=== PATIENT | female | born 1935 | race Caucasian/White ===

== ENCOUNTER 2017-11-24 12:52 | Emergency (ER) | payer MEDICARE, BC ==
[~2017-11-24] VITALS: Ht 172.7 cm; Wt 60.3 kg
[~2017-11-24 12:52] MED LIST: ASPIRIN EC81 M1 PO; ATENOLOL 50 MG50 M1 PO; ATORVASTATIN CA40 MG PO; AUGMENTIN 875875 MG PO; CALCIUM 1,0001 EACH PO; ENDUR-ACIN500 MG PO; FISH OIL 1,0001 EAC5 PO; GLUCOSAMINE HC500 MG PO; PLAVIX 75 MG TA75 M1 PO; SYNTHROID112 MCG PO; TAMIFLU PO; TENORMIN50 MG PO; TRAMADOL 50 MG50 MG PO; ULTRAM 50MG TAB50 MG PO; XANAX 0.25 MG0.25 MG PO; ZOFRAN ODT4 MG PO
[2017-11-24 13:23] LABS: URINE BILIRUBIN NEGATIVE (Negative); URINE BLOOD 2+ (Negative); URINE CLARITY CLEAR; URINE COLOR YELLOW; URINE GLUCOSE-RANDOM NEGATIVE (Negative); URINE KETONES TRACE (Negative); URINE LEUKOCYTES-REFLEX TRACE (Negative); URINE NITRITE-REFLEX NEGATIVE (Negative); URINE PROTEIN 2+ (Negative); URINE UROBILINOGEN 0.2 E.U./dl (0.2-1.0)
[2017-11-24 13:31] LABS: BACTERIA-REFLEX 1-9 Few /HPF (None Seen); CASTS None Seen /LPF (None Seen); CRYSTALS None Seen /LPF (None Seen); MUCUS None Seen strn/LPF (None Seen); SQUAMOUS 4-10 Moderate /LPF (0-3); URINE RBC 3-10 Few /HPF (0-2); URINE WBC-REFLEX 0-5 Rare /HPF (0-5)
[2017-11-24 13:44] LABS: ABSOLUTE EOSINOPHILS 0.1 thou/uL (0.0-0.7); ABSOLUTE LYMPHOCYTES 0.8 thou/uL (0.8-5.3); ABSOLUTE MONOCYTES 0.5 thou/uL (0.0-1.2); ABSOLUTE NEUTROPHILS 6.4 thou/uL (1.6-8.1); BASOPHILS 0.4 %; EOSINOPHILS 1.7 %; HEMATOCRIT 39.9 % (37.0-47.0); HEMOGLOBIN 13.3 gm/dL (12.0-15.0); LYMPHOCYTES 10.3 %; MCH 31.8 pg (26.0-34.0); MCHC 33.3 g/dL (28.0-37.0); MCV 95.4 fL (80.0-100.0); MONOCYTES 6.8 %; MPV 8.3 fl. (7.2-11.1); NUCLEATED RBCS 0 /100WBC; PLATELET COUNT* 154 thou/uL (150-400); POLYS 80.8 %; RBC 4.19 mil/uL (4.20-5.00); RDW-CV 13.4 % (10.5-14.5)
[2017-11-24 13:54] LABS: APTT 33.6 Seconds (25.0-31.3); PROTIME 10.1 Seconds (9.20-11.50)
[2017-11-24 13:55] LABS: ANION GAP 10 mmol/L (7-16); BUN 13 mg/dL (7-18); CALCIUM 9.4 mg/dL (8.5-10.1); CHLORIDE 97 mmol/L (98-107); CO2 27 mmol/L (21-32); CREATININE 0.9 mg/dL (0.6-1.3); GLUCOSE 109 mg/dL (70-99); POTASSIUM 3.9 mmol/L (3.5-5.1); SODIUM 134 mmol/L (136-145)
[2017-11-24 14:04] LABS: ALBUMIN 3.9 g/dL (3.4-5.0); ALKALINE PHOSPHATASE 102 U/L (46-116); NT-PRO BRAIN NAT PEPTIDE 2251 pg/mL (<300); SGOT 21 U/L (15-37); SGPT 29 U/L (30-65); TOTAL BILIRUBIN 0.4 mg/dL (<0.1-1.0); TOTAL PROTEIN 7.6 g/dL (6.4-8.2); TROPONIN-I LEVEL <0.06 ng/mL (<0.06)
[2017-11-24] MEDS ORDERED: ZPAK PO (14:53)
[2017-11-24] MEDS ORDERED: PREDNISONE 20 M20 M1 PO (14:53)
[2017-11-24 15:07] VITALS: BP 155/62
--- NOTE | 2017-11-24 16:45 | EKG ---
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 : 1935 Requested By: Braydon Nogueira Order Number: [id number] MD: Blas Gongora Measurements Intervals [place] Rate: 66 P: 65 NC: 211 QRS: -76 QRSD: 143 T: 19 QT: 430 QTc: 451 Interpretive Statements Sinus rhythm Probable left atrial enlargement Right bundle-branch block with left anterior fascicular block Compared to ECG 02/24/2017 15:42:15 No significant changes noted Electronically Signed On 11-24-2017 16:45:48 QUALITY ASSURANCE MONITOR FINAL by Blas Gongora [email or web address] <ELECTRONICALLY SIGNED> By: Blas Gongora MD, [facility] 11/24/17 1645 38 38 Blas Gongora MD, FAC /EPI
== END 2017-11-24 15:08 | disposition home or self-care (01) ==
LOC: M.ERS 12:52
PROVIDERS: Family Medicine
DX: R05 Cough (principal); R53.1 Weakness; J02.9 Acute pharyngitis, unspecified; Z95.5 Presence of coronary angioplasty implant and graft; Z98.890 Other specified postprocedural states; Z88.5 Allergy status to narcotic agent; Z88.6 Allergy status to analgesic agent

== ENCOUNTER 2019-04-14 11:14 | Inpatient (IN) | payer MEDICARE, BC ==
[~2019-04-14] VITALS: Ht 172.7 cm; Wt 59.2 kg
--- NOTE | ~2019-04-14 | CON ---
[address] [address] CONSULTATION Name: MARISOL GERARD Room: [address] IN M.R.#: [id number] Admission: 04/14/19 Attend Phys: Ryan Millan, Discharge: Date of : 31 Report #: [id number] THIS REPORT FOR: //name// CC: Lamin Millan HISTORY OF PRESENT ILLNESS: This is a pleasant 83-year-old female who was admitted to [facility] 2 weeks back for vertebral fracture status post vertebroplasty, who has transferred care here since she was unhappy because of poor pain control. GI service has been consulted for evaluation of elevated lipase. The patient denies any significant abdominal pain, nausea, vomiting, diarrhea, hematemesis or hematochezia. She denies prior episodes of pancreatitis. The patient does report generalized weakness, malaise and lethargy. PAST MEDICAL HISTORY: She has a history of coronary artery disease, thrombocytopenia, vertebroplasty for vertebral fracture, hyperlipidemia, and dementia. PAST SURGICAL HISTORY: The patient has a history of vertebroplasty as mentioned above. SOCIAL HISTORY: There is no history of alcohol, smoking or recreational drug use. FAMILY HISTORY: No family history of colorectal or pancreatic malignancy. REVIEW OF SYSTEMS: A comprehensive 10-point review of systems is negative except for what was mentioned in the HPI. PHYSICAL EXAMINATION: VITAL SIGNS: Temperature 36.4, pulse rate 60, respirations 18, blood pressure 158/83. GENERAL: The patient is alert, awake. HEENT: Pupils are equal, round, reactive to light and accommodation. Mucous membranes are moist. There is no congestion. LUNGS: Clear to auscultation bilaterally. CARDIOVASCULAR: Rate and rhythm regular. S1, S2 present. ABDOMEN: Soft. There is no distention, guarding or rigidity. EXTREMITIES: Warm and well perfused. There is no edema. SKIN: Warm and dry. LABORATORY DATA: WBC 1.8, hemoglobin 11.8, hematocrit 35.4, platelet count 59. Sodium 138, potassium 4.0, chloride 96, bicarbonate 23, BUN 14, creatinine 0.9, total bilirubin 0.3, AST 47, ALT 40, alkaline phosphatase 75. Lipase on presentation was 1153. [place] [address] CONSULTATION Name: MARISOL GERARD Room: [address] IN [facility]#: [id number] Admission: 04/14/19 Attend Phys: Ryan Millan, Discharge: Date of : 33 Report #: [id number] IMAGING: CT abdomen and pelvis does not demonstrate any evidence of pancreatitis, evidence of previous cholecystectomy and appendectomy, abdominal aortic graft. ASSESSMENT AND PLAN: Pleasant 83-year-old female with history as outlined above, who is presenting for pain management following vertebroplasty. The GI service has been consulted for evaluation of pancreatitis. The patient does not have any abdominal pain, only her lipase is elevated. There is no CT evidence of pancreatitis. Therefore, I suspect she may have some nonspecific enteritis causing elevation of lipase, which needs no further intervention at this time. The patient never had a colonoscopy, but currently she is too old to proceed with screening colonoscopy. Her platelet count is low, but there is no evidence of cirrhosis and she additionally has low WBC count and this may be more related to myelodysplastic syndrome. No endoscopic intervention planned at this time. Thank you for this consultation and please do not hesitate to call us if you have any questions. By: [id number] Momin MD /nt
[~2019-04-14 11:14] MED LIST changes: +ATENOLOL 25 MG25 M1 PO; +PREDNISONE 20 M20 M1 PO; -SYNTHROID112 MCG PO; +SYNTHROID88 MCG PO; -TENORMIN50 MG PO; +ZPAK PO
[2019-04-14 11:23] VITALS: BP 143/58
[2019-04-14 11:54] LABS: HEMATOCRIT 37.5 % (37.0-47.0); HEMOGLOBIN 12.4 gm/dL (12.0-15.0); MCH 31.4 pg (26.0-34.0); MCHC 33.1 g/dL (28.0-37.0); MCV 94.9 fL (80.0-100.0); NUCLEATED RBCS 0 /100WBC; RBC 3.95 mil/uL (4.20-5.00); RDW-CV 13.5 % (10.5-14.5)
[2019-04-14 12:03] LABS: WBC 1.6 thou/uL (4.0-11.0)
[2019-04-14 12:04] LABS: ANION GAP 9 mmol/L (7-16); BUN 21 mg/dL (7-18); CALCIUM 8.3 mg/dL (8.5-10.1); CHLORIDE 99 mmol/L (98-107); CO2 23 mmol/L (21-32); CREATININE 1.2 mg/dL (0.6-1.3); GLUCOSE 117 mg/dL (70-99); POTASSIUM 4.5 mmol/L (3.5-5.1); SODIUM 131 mmol/L (136-145)
[2019-04-14 12:05] LABS: APTT 35.7 Seconds (25.0-31.3)
[2019-04-14 12:13] LABS: ALBUMIN 3.7 g/dL (3.4-5.0); ALKALINE PHOSPHATASE 88 U/L (46-116); LIPASE 1153 U/L (73-393); SGOT 53 U/L (15-37); SGPT 46 U/L (30-65); TOTAL BILIRUBIN 0.4 mg/dL (<0.1-1.0); TOTAL PROTEIN 6.5 g/dL (6.4-8.2); TROPONIN-I LEVEL <0.06 ng/mL (<0.06)
[2019-04-14 12:42] LABS: ABSOLUTE LYMPHOCYTES 0.8 thou/uL (0.8-5.3); ABSOLUTE MONOCYTES 0.2 thou/uL (0.0-1.2); ABSOLUTE NEUTROPHILS 0.6 thou/uL (1.6-8.1)
[2019-04-14 12:45] LABS: PLATELET ESTIMATE DECREASED
[2019-04-14 12:46] LABS: PLATELET COUNT* 70 thou/uL (150-400)
[2019-04-14 14:22] LABS: URINE BILIRUBIN NEGATIVE (Negative); URINE BLOOD NEGATIVE (Negative); URINE CLARITY CLEAR; URINE COLOR YELLOW; URINE GLUCOSE-RANDOM NEGATIVE (Negative); URINE KETONES NEGATIVE (Negative); URINE LEUKOCYTES-REFLEX NEGATIVE (Negative); URINE NITRITE-REFLEX NEGATIVE (Negative); URINE PROTEIN NEGATIVE (Negative); URINE SPECIFIC GRAVITY <= 1.005 (1.005-1.030); URINE UROBILINOGEN 0.2 E.U./dl (0.2-1.0)
--- NOTE | 2019-04-14 15:43 | EKG ---
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 : 1935 Requested By: Татьяна Mederos Order Number: [id number] MD: Kishan Hernandez Measurements Intervals [place] Rate: 57 P: -27 GA: 217 QRS: -73 QRSD: 152 T: -11 QT: 467 QTc: 455 Interpretive Statements Sinus rhythm Borderline prolonged GA interval artifact noted RBBB and LAFB Compared to ECG 11/24/2017 13:39:29 No significant changes Electronically Signed On 04-14-2019 15:43:15 CDT by Kishan Hernandez [email or web address] <ELECTRONICALLY SIGNED> By: Kishan Hernandez MD, [facility] 04/14/19 1543 1204 1204 Kishan Hernandez MD, [facility] /EPI
[2019-04-14 16:14] VITALS: BP 142/64
[2019-04-14 16:20] VITALS: BP 161/69
[2019-04-14 19:30] VITALS: BP 130/61
[2019-04-14] MEDS ORDERED: LOSARTAN POTASS50 MG PO (20:49)
[2019-04-14] MEDS ORDERED: ASPIR 8181 M1 PO (20:52)
[2019-04-14] MEDS ORDERED: ARICEPT 5 MG TAB5 MG PO (20:53)
[2019-04-15 04:34] LABS: HEMATOCRIT 35.4 % (37.0-47.0); HEMOGLOBIN 11.8 gm/dL (12.0-15.0); MCH 31.5 pg (26.0-34.0); MCHC 33.3 g/dL (28.0-37.0); MCV 94.6 fL (80.0-100.0); MPV 9.5 fl. (7.2-11.1); RBC 3.74 mil/uL (4.20-5.00); RDW-CV 13.6 % (10.5-14.5)
[2019-04-15 05:05] LABS: CALCIUM 8.3 mg/dL (8.5-10.1); CREATININE 0.9 mg/dL (0.6-1.3); MAGNESIUM 1.8 mg/dL (1.8-2.4); TOTAL BILIRUBIN 0.3 mg/dL (<0.1-1.0); TOTAL PROTEIN 5.8 g/dL (6.4-8.2)
[2019-04-15 06:01] LABS: WBC 1.8 thou/uL (4.0-11.0)
[2019-04-15 10:45] VITALS: BP 171/70
[2019-04-15 16:23] VITALS: BP 138/59
[2019-04-15 21:50] VITALS: BP 137/81
[2019-04-16 04:27] LABS: HEMATOCRIT 35.2 % (37.0-47.0); HEMOGLOBIN 11.7 gm/dL (12.0-15.0); MCH 31.2 pg (26.0-34.0); MCHC 33.1 g/dL (28.0-37.0); MCV 94.2 fL (80.0-100.0); MPV 9.2 fl. (7.2-11.1); RBC 3.74 mil/uL (4.20-5.00); RDW-CV 13.9 % (10.5-14.5)
[2019-04-16 05:00] LABS: CALCIUM 7.9 mg/dL (8.5-10.1); CREATININE 0.8 mg/dL (0.6-1.3); MAGNESIUM 1.6 mg/dL (1.8-2.4); POTASSIUM 3.9 mmol/L (3.5-5.1); TOTAL BILIRUBIN 0.4 mg/dL (<0.1-1.0); TOTAL PROTEIN 5.5 g/dL (6.4-8.2)
[2019-04-16 05:16] LABS: WBC 1.7 thou/uL (4.0-11.0)
[2019-04-16 08:45] VITALS: BP 158/83
[2019-04-16 16:00] VITALS: BP 171/79
[2019-04-16 20:40] VITALS: BP 165/68
[2019-04-17 04:27] LABS: HEMATOCRIT 33.3 % (37.0-47.0); HEMOGLOBIN 11.2 gm/dL (12.0-15.0); MCH 31.6 pg (26.0-34.0); MCHC 33.6 g/dL (28.0-37.0); MCV 93.9 fL (80.0-100.0); MPV 9.3 fl. (7.2-11.1); RBC 3.54 mil/uL (4.20-5.00); RDW-CV 13.6 % (10.5-14.5); WBC 2.2 thou/uL (4.0-11.0)
[2019-04-17 04:53] LABS: ALBUMIN 2.9 g/dL (3.4-5.0); CALCIUM 8.1 mg/dL (8.5-10.1); CREATININE 0.7 mg/dL (0.6-1.3); MAGNESIUM 1.6 mg/dL (1.8-2.4); TOTAL BILIRUBIN 0.5 mg/dL (<0.1-1.0); TOTAL PROTEIN 5.5 g/dL (6.4-8.2)
[2019-04-17 09:51] VITALS: BP 152/82
[2019-04-17 16:00] VITALS: BP 179/83
[2019-04-17 20:00] VITALS: BP 185/78
[2019-04-18 04:37] LABS: HEMATOCRIT 33.9 % (37.0-47.0); HEMOGLOBIN 11.3 gm/dL (12.0-15.0); MCH 31.3 pg (26.0-34.0); MCHC 33.4 g/dL (28.0-37.0); MCV 93.7 fL (80.0-100.0); MPV 9.8 fl. (7.2-11.1); RBC 3.62 mil/uL (4.20-5.00); RDW-CV 13.7 % (10.5-14.5); WBC 2.9 thou/uL (4.0-11.0)
[2019-04-18 04:54] LABS: ALBUMIN 2.9 g/dL (3.4-5.0); CALCIUM 8.3 mg/dL (8.5-10.1); CREATININE 0.8 mg/dL (0.6-1.3); MAGNESIUM 1.7 mg/dL (1.8-2.4); PHOSPHORUS* 2.8 mg/dL (2.5-4.9); POTASSIUM 3.6 mmol/L (3.5-5.1)
[2019-04-18 08:15] VITALS: BP 174/79
[2019-04-18 11:55] VITALS: BP 156/58
[2019-04-18] MEDS ORDERED: LIDODERM1 EACH TOP (13:49)
[2019-04-18] MEDS ORDERED: LORTAB PO (13:50)
[2019-04-18 13:55] VITALS: BP 156/58
[2019-04-18 13:58] VITALS: BP 176/54
[2019-04-18 14:40] VITALS: BP 180/83
[2019-04-18 15:08] VITALS: BP 156/74
== END 2019-04-18 15:27 | disposition home or self-care (01) | DRG 812 ==
LOC: M.ERS 11:14 → M.TBA-ER 15:09 → M.ORTHSURG 15:09
PROVIDERS: Internal Medicine Hematology & Oncology; Nurse Practitioner Family; ADMIT Family Medicine
DX: D46.9 Myelodysplastic syndrome, unspecified (principal); E44.1 Mild protein-calorie malnutrition; Z68.1 Body mass index [BMI] 19.9 or less, adult; F03.90 Unspecified dementia, unspecified severity, without behavioral disturbance, psychotic disturbance, mood disturbance, and anxiety; M54.9 Dorsalgia, unspecified; M54.6 Pain in thoracic spine; G89.29 Other chronic pain; I25.10 Atherosclerotic heart disease of native coronary artery without angina pectoris; E78.5 Hyperlipidemia, unspecified; K52.9 Noninfective gastroenteritis and colitis, unspecified; K57.90 Diverticulosis of intestine, part unspecified, without perforation or abscess without bleeding; Z90.49 Acquired absence of other specified parts of digestive tract; Z88.6 Allergy status to analgesic agent; Z88.8 Allergy status to other drugs, medicaments and biological substances; I25.2 Old myocardial infarction; Z88.5 Allergy status to narcotic agent; Z82.49 Family history of ischemic heart disease and other diseases of the circulatory system; Z95.5 Presence of coronary angioplasty implant and graft

== ENCOUNTER 2019-10-23 16:48 | Emergency (ER) | payer MEDICARE, BC ==
[~2019-10-23] VITALS: Ht 172.7 cm; Wt 56.7 kg
[~2019-10-23 16:48] MED LIST changes: +ARICEPT 5 MG TAB5 MG PO; +ASPIR 8181 M1 PO; +LIDODERM1 EACH TOP; +LORTAB PO; +LOSARTAN POTASS50 MG PO
[2019-10-23 17:09] LABS: URINE BILIRUBIN NEGATIVE (Negative); URINE BLOOD NEGATIVE (Negative); URINE CLARITY CLEAR; URINE COLOR YELLOW; URINE GLUCOSE-RANDOM NEGATIVE (Negative); URINE KETONES NEGATIVE (Negative); URINE LEUKOCYTES-REFLEX NEGATIVE (Negative); URINE NITRITE-REFLEX NEGATIVE (Negative); URINE PROTEIN NEGATIVE (Negative); URINE UROBILINOGEN 0.2 E.U./dl (0.2-1.0)
[2019-10-23 17:35] LABS: ABSOLUTE BASOPHILS 0.1 thou/uL (0.0-0.2); ABSOLUTE EOSINOPHILS 0.4 thou/uL (0.0-0.7); ABSOLUTE LYMPHOCYTES 1.8 thou/uL (0.8-5.3); ABSOLUTE MONOCYTES 0.4 thou/uL (0.0-1.2); ABSOLUTE NEUTROPHILS 4.4 thou/uL (1.6-8.1); BASOPHILS 0.8 %; EOSINOPHILS 6.1 %; HEMATOCRIT 37.3 % (37.0-47.0); HEMOGLOBIN 12.8 gm/dL (12.0-15.0); LYMPHOCYTES 25.6 %; MCH 33.5 pg (26.0-34.0); MCHC 34.2 g/dL (28.0-37.0); MCV 97.8 fL (80.0-100.0); MPV 9.2 fl. (7.2-11.1); NUCLEATED RBCS 0 /100WBC; PLATELET COUNT* 152 thou/uL (150-400); POLYS 61.5 %; RBC 3.81 mil/uL (4.20-5.00); RDW-CV 13.6 % (10.5-14.5); WBC 7.2 thou/uL (4.0-11.0)
[2019-10-23 17:44] LABS: CALCIUM 9.1 mg/dL (8.5-10.1); CREATININE 1.1 mg/dL (0.6-1.3); POTASSIUM 4.7 mmol/L (3.5-5.1)
[2019-10-23 17:48] LABS: ALBUMIN 3.5 g/dL (3.4-5.0); TOTAL BILIRUBIN 0.3 mg/dL (<0.1-1.0); TOTAL PROTEIN 6.8 g/dL (6.4-8.2)
[2019-10-23] MEDS ORDERED: FLEXERIL PO (18:59)
[2019-10-23 19:13] VITALS: BP 126/56
== END 2019-10-23 19:15 | disposition home or self-care (01) ==
LOC: M.ERS 16:48
PROVIDERS: Family Medicine; Nurse Practitioner Family
DX: M54.5 Low back pain (principal); G89.29 Other chronic pain; F03.90 Unspecified dementia, unspecified severity, without behavioral disturbance, psychotic disturbance, mood disturbance, and anxiety; Z90.49 Acquired absence of other specified parts of digestive tract; Z95.2 Presence of prosthetic heart valve; Z88.5 Allergy status to narcotic agent; Z88.6 Allergy status to analgesic agent; Z88.1 Allergy status to other antibiotic agents

== ENCOUNTER 2020-06-18 08:43 | Inpatient (IN) | payer MEDICARE, BC ==
[~2020-06-18] VITALS: Ht 172.7 cm; Wt 56.2 kg
[~2020-06-18 08:43] MED LIST changes: +FLEXERIL PO
[2020-06-18 09:02] VITALS: BP 146/71
[2020-06-18 10:16] LABS: ABSOLUTE EOSINOPHILS 0.3 thou/uL (0.0-0.7); ABSOLUTE LYMPHOCYTES 1.4 thou/uL (0.8-5.3); ABSOLUTE MONOCYTES 0.5 thou/uL (0.0-1.2); ABSOLUTE NEUTROPHILS 4.8 thou/uL (1.6-8.1); BASOPHILS 0.7 %; HEMATOCRIT 34.3 % (37.0-47.0); HEMOGLOBIN 11.7 gm/dL (12.0-15.0); LYMPHOCYTES 19.5 %; MCHC 34.3 g/dL (28.0-37.0); MCV 99.2 fL (80.0-100.0); MONOCYTES 6.8 %; MPV 9.3 fl. (7.2-11.1); NUCLEATED RBCS 0 /100WBC; PLATELET COUNT* 130 thou/uL (150-400); RBC 3.46 mil/uL (4.20-5.00); RDW-CV 13.1 % (10.5-14.5)
[2020-06-18 10:25] LABS: CALCIUM 8.6 mg/dL (8.5-10.1); CREATININE 1.1 mg/dL (0.6-1.3); POTASSIUM 4.2 mmol/L (3.5-5.1)
[2020-06-18 10:35] LABS: ALBUMIN 3.4 g/dL (3.4-5.0); TOTAL BILIRUBIN 0.5 mg/dL (<0.1-1.0); TOTAL PROTEIN 6.4 g/dL (6.4-8.2)
[2020-06-18 10:36] LABS: APTT 26.4 Seconds (25.0-31.3); PROTIME 10.7 Seconds (9.20-11.50)
--- NOTE | 2020-06-18 12:37 | NUR ---
20 g LT ac IV ACCESS did not function upon arrival. CALLED INFUSION LAB FOR REPLACEMENT
--- NOTE | 2020-06-18 13:18 | NUR ---
RENETTA SHEPARD FROM INFUSION ARRIVED IN CT TO PERFORM A MIDLINE IN LEFT UPPER ARM. SUCCESSFUL ATTEMPT, TRANSPARENT TAPE APPLIED. RENETTA SHEPARD ATTEMPTED PERIPHERAL IV X [address] UNS[address] PRIOR TO MIDLINE. DR MENDOZA NOTIFIED. PT TOLERATED PROCEDURE FAIR
[2020-06-18 15:02] LABS: URINE BILIRUBIN NEGATIVE (Negative); URINE BLOOD NEGATIVE (Negative); URINE CLARITY CLEAR; URINE COLOR YELLOW; URINE GLUCOSE-RANDOM NEGATIVE (Negative); URINE KETONES NEGATIVE (Negative); URINE LEUKOCYTES-REFLEX NEGATIVE (Negative); URINE NITRITE-REFLEX NEGATIVE (Negative); URINE PROTEIN NEGATIVE (Negative); URINE UROBILINOGEN 0.2 E.U./dl (0.2-1.0)
--- NOTE | 2020-06-18 15:22 | EKG ---
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 06/18/20 1522 0856 0856 Kishan Hernandez MD, [facility] /EPI
--- NOTE | 2020-06-18 16:37 | CON ---
[address] [address] CONSULTATION Name: MARISOL GERARD Room: [address] M.R.#: [id number] Admission: 06/18/20 Attend Phys: David Adam MD Discharge: Date of : 31 Report #: [id number] THIS REPORT FOR: //name// cc: Lamin Lou MD, Bruce D. MD ~ THIS REPORT FOR: //name// CC: Lamin Griffith DATE OF SERVICE: 06/18/2020 CARDIOLOGY CONSULTATION HISTORY OF PRESENT ILLNESS: The patient is an 85-year-old white female who I was asked to see in the Emergency Room today after she was noted to be bradycardic. The history is obtained from the old records as well as the . The patient has had several hospitalizations here at [facility] in the past. She was admitted here in 2013 with the flu. She was admitted here in 2017 after a dog bite on her hands and a hematoma. She was admitted here a year ago in 04/2019 with chronic back pain. She had a spinal injection performed. She is noted to be thrombocytopenic. She has previous history of placement of an abdominal aortic aneurysm stent graft. The patient has a history of dementia and memory loss. She is able to feed herself and walk. She was doing well until this morning, she noticed a pain in her left armpit. Her brought her to the Emergency Room. She has chronic shortness of breath. She has felt lightheaded, but no syncope. She denied any trauma, fever or cough. PAST MEDICAL HISTORY: She had hysterectomy, cholecystectomy, placement of an abdominal aortic aneurysm stent graft. MEDICATIONS: On admission include Aricept, Synthroid, atenolol, Lipitor, Plavix, losartan, aspirin. ALLERGIES: SHE HAS AN ALLERGY TO MORPHINE. FAMILY HISTORY: Negative for heart disease. SOCIAL HISTORY: She is . Quit smoking years ago. No alcohol abuse. REVIEW OF SYSTEMS: No history of stroke, asthma, liver disease, kidney disease, cancer, psychiatric illness. PHYSICAL EXAMINATION: GENERAL: Revealed an elderly female lying in bed. [place] [address] CONSULTATION Name: MARISOL GERARD Room: [address]#: [id number] Admission: 06/18/20 Attend Phys: David Adam MD Discharge: Date of : 33 Report #: [id number] VITAL SIGNS: She had a blood pressure of 140/60, pulse is 46. She was afebrile. HEENT: She is anicteric. Conjunctivae are pink. Mucous membranes are dry. CHEST: Clear to auscultation. CARDIOVASCULAR: Regular bradycardia. ABDOMEN: Soft. EXTREMITIES: Had no significant edema. SKIN: Cool and dry. NEUROLOGIC: She is able to move all extremities. IMAGING: Her ECG on admission showed sinus bradycardia, left anterior fascicular block and a right bundle branch block. She had workup in the Emergency Room today that included a portable chest x-ray that showed normal heart size. There was a soft tissue density along the left chest wall. LABORATORY DATA: Sodium 137, creatinine 1.1. Liver function studies were normal. Troponin 0.06. BNP 1141. White blood cell count 7.0, hematocrit 34.3. IMPRESSION AND RECOMMENDATIONS: 1. Sinus bradycardia, suspect secondary to beta john paul. I would discontinue her beta john paul at this time. I would check thyroid function studies. 2. Left chest wall pain. Suspect noncardiac. Noted to have mass on chest x-ray. Recommend CT scan of the chest. 3. Dementia. 4. Previous placement of an abdominal aortic aneurysm stent graft. 5. Hypertension. The patient has been on atenolol and losartan. I would discontinue atenolol at this time because of bradycardia. 6. Hyperlipidemia. The patient is on a statin drug. <ELECTRONICALLY SIGNED> By: Kishan Hernandez MD, [facility] 06/18/20 1637 1330 [id number] Hernandez MD, FAC /nt
--- NOTE | 2020-06-18 18:44 | NUR ---
LORNE WRAPS APPLIED TO IV SITES TO PREVENT ACCIDENTAL PULLING FROM PT
[2020-06-18 19:55] VITALS: BP 124/57
[2020-06-18 20:15] VITALS: BP 136/82
[2020-06-19] VITALS: BP 124/79; BP 160/60
[2020-06-19 01:03] LABS: HEMATOCRIT 33.2 % (37.0-47.0); HEMOGLOBIN 11.4 gm/dL (12.0-15.0); MCH 33.9 pg (26.0-34.0); MCHC 34.3 g/dL (28.0-37.0); MCV 99.1 fL (80.0-100.0); RBC 3.35 mil/uL (4.20-5.00); RDW-CV 13.2 % (10.5-14.5); WBC 5.3 thou/uL (4.0-11.0)
[2020-06-19 01:14] LABS: CALCIUM 8.1 mg/dL (8.5-10.1); CREATININE 1.2 mg/dL (0.6-1.3); MAGNESIUM 1.7 mg/dL (1.8-2.4); POTASSIUM 3.8 mmol/L (3.5-5.1)
[2020-06-19] MEDS ORDERED: NAMENDA 10 MG T10 MG PO (01:45)
[2020-06-19] MEDS ORDERED: FOLIC ACID1 MG PO (01:46)
[2020-06-19] MEDS ORDERED: CALCIUM500 MG PO (01:47)
[2020-06-19] MEDS ORDERED: IRON18 M1 PO (01:48)
[2020-06-19] MEDS ORDERED: VITAMIN D325 MC3 PO (01:50)
[2020-06-19 04:00] VITALS: BP 115/56
--- NOTE | 2020-06-19 04:37 | NUR ---
RECIEVED REPORT FROM ORLANDO SHEPARD. PT TRANSFERRED TO 207. PT A&OX4. FORGETFUL. VSS. 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 ADMISSION HISTORY & PHYSICAL ASSESSMENT COMPLETED AND CHARTED. REC MED DONE. ORIENTED TO ROOM & CALL LIGHT. FAMILY AT BEDSIDE. PT ON RA. PT TRACING SB/1ST DEG/BBB ON TELE. PT UPSTANDBY TO RESTROOM. PT COMPLAINED OF HEADACHE-MED GIVEN PER JAN. INSTRUCTED ON NPO POST MIDNIGHT FOR CARDIO CONSULT. COMMUNICATES UNDERSTANDING BUT NEEDS REMINDER. PT ABLE TO SLEEP WELL ON BED. FALL PRECAUTIONS IN PLACE. CALL LIGHT WITHIN REACH.
--- NOTE | 2020-06-19 12:42 | NUR ---
CM spoke with in room at bedside, per Pt is [place]. Pt is independent with ADLs. Pt and share IADLs. Supportive son and DIL and grandkids. No DME. No hx of HH or SNF. Goal is home at dc. Anticipate dc tomorrow, no needs per .
[2020-06-19 12:43] VITALS: BP 120/57
--- NOTE | 2020-06-19 13:11 | 2DMMODE ---
[place] [address] 2 D/M-MODE ECHOCARDIOGRAM Name: MARISOL GERARD Room: [address] IN .R.#: [id number] Admission: 06/18/20 Attend Phys: David Adam, Discharge: Date of : 31 Date of Service: 06/19/20 1311 Report #: [id number] THIS REPORT FOR: cc: Lamin Lou MD, Bruce D. MD Liston, Michael J. MD [facility] ~ APPROVED REPORT Study performed: 06/19/2020 10:16:39 EXAM: Comprehensive 2D, Doppler, and color-flow Echocardiogram Patient Location: In-Patient Room #: [facility] Status: routine BSA: 1.63 HR: 40 bpm BP: 115/56 mmHg Rhythm: NSR Other Information Study Quality: Good Indications Abnormal ECG 2D Dimensions IVSd: 9.29 (7-11mm) LVOT Diam: 18.91 (18-24mm) LVDd: 51.48 mm PWd: 9.15 (7-11mm) Ascending Ao: 25.13 (22-36mm) LVDs: 25.90 (25-40mm) Aortic Root: 29.64 mm Volumes Left Atrial Volume (Systole) LA ESV Index: 38.50 mL/m2 Aortic Valve AoV Peak Evan.: 2.05 m/s AO Peak Gr.: 16.86 mmHg LVOT Max P.89 mmHg AO Mean Gr.: 10.21 mmHg LVOT Mean P.13 mmHg LVOT Max V: 1.49 m/s AO V2 VTI: 54.19 cm LVOT Mean V: 0.96 m/s TIERRA (VTI): 1.63 cm2 LVOT V1 VTI: 31.47 [place] [address] 2 D/M-MODE ECHOCARDIOGRAM [facility]: [facility] Room: [address] IN .R.#: [id number] Admission: 06/18/20 Attend Phys: David Adam, Discharge: Date of : 33 Date of Service: 06/19/20 1311 Report #: [id number] Mitral Valve MV Decel. Time: 336.92 ms MV PHT: 97.71 ms MVA (PHT): 2.25 cm2 TDI Medial E' Evan.: 0.08 m/s Lateral E' Evan.: 0.11 m/s Pulmonary Valve PV Peak Evan.: 1.17 m/s PV Peak Gr.: 5.51 mmHg Tricuspid Valve RAP Estimate: 5.00 mmHg TR Peak Gr.: 23.50 mmHg RVSP: 28.00 mmHg PA Pressure: 28.00 mmHg Left Ventricle The left ventricle is normal size. There is normal LV segmental wall motion. There is normal left ventricular wall thickness. Left ventricular systolic function is normal. LVEF is >70%. Grade I - abnormal relaxation pattern. Right Ventricle The right ventricle is normal size. The right ventricular systolic function is normal. Atria Left atrium is mildly dilated. Right atrium is mildly dilated. Aortic Valve Mild aortic valve sclerosis. No aortic regurgitation is present. Mild aortic stenosis. Mitral Valve There is mitral annular calcification. Trace mitral regurgitation. No evidence of mitral valve stenosis. Tricuspid Valve The tricuspid valve is normal in structure. Mild tricuspid regurgitation. No pulmonary hypertension. Pulmonic Valve The pulmonary valve is normal in structure. There is no pulmonic [place] [address] 2 D/M-MODE ECHOCARDIOGRAM Name: MARISOL GERARD Room: [address] IN [facility].#: [id number] Admission: 06/18/20 Attend Phys: David Adam, Discharge: Date of : 31 Date of Service: 06/19/20 1311 Report #: [id number] Great Vessels The aortic root is normal in size. IVC is normal in size and collapses >50% with inspiration. Pericardium There is no pericardial effusion. <Conclusion> The left ventricle is normal size. There is normal left ventricular wall thickness. Left ventricular systolic function is normal. LVEF is >70%. Grade I - abnormal relaxation pattern. Left atrium is mildly dilated. Right atrium is mildly dilated. Mild aortic valve sclerosis. Mild aortic stenosis. Trace mitral regurgitation. Mild tricuspid regurgitation. No pulmonary hypertension. IVC is normal in size and collapses >50% with inspiration. <ELECTRONICALLY SIGNED> By: Blas Gongora MD, [facility]ACC 06/19/20 131 10 131 Blas Gongora MD, FACC /INF
--- NOTE | 2020-06-19 13:18 | EKG ---
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: : 1935 Requested By: Kishan Hernandez Order Number: [id number] Reading MD: Blas Gongora Measurements Intervals [place] Rate: 51 P: 69 GA: 251 QRS: -82 QRSD: 148 T: 11 QT: 508 QTc: 468 Interpretive Statements Sinus rhythm Prolonged [place] interval RBBB and LAFB Probable left ventricular hypertrophy Compared to ECG 06/18/2020 08:56:01 Sinus bradycardia no longer present Electronically Signed On 06-19-2020 13:18:37 CDT by Blas Gongora [email or web address] <ELECTRONICALLY SIGNED> By: Blas Gongora MD, FAC 06/19/20 1318 Blas Gongora MD, [facility] /EPI
--- NOTE | 2020-06-19 13:55 | NUR ---
ASSUMED CARE OF PATIENT THIS AM AT 0730. PATIENT WAS ALERT AND ORIENTED TO PERSON. SHE INITIALLY DENIED PAIN THIS AM BUT C/O A SEVERE BOSS SHORTLY AFTER AM ASSESSMENT WAS COMPLETED. PATIENT MEDICATED FOR C/O PAIN THIS AM. SHE STATED PAIN MEDICATION WAS NOT EFFECTIVE. PATIENT GIVEN ALTERNATIVE PAIN MEDICATION. SHE SAID THAT IS WAS NOT EFFECTIVE ITHER. PATIENT GIVEN ADDITIONAL MEDICATION. SEE JAN. PATIENT WAS SLEEPING WITHN 30 MINUTES OF MEDICATION. SHE HAS BEEN UP TO THE BATHROOM WITH STANDBY ASSIST. TELE SHOWS SINUS SUKHWINDER ARRYTHMIA WITH A 1DAVB AND BBB. HEART RATE WAS LOW 28. CARDIOLOGY IN TO SEE PATIENT THIS AM. NNO AT THIS TIME. WILL CONTINUE TO MONITOR HEART RYHTHM AND COMFORT.
[2020-06-19 16:54] VITALS: BP 160/81
[2020-06-19 20:30] VITALS: BP 156/72
[2020-06-20] VITALS: BP 127/70
[2020-06-20 04:00] VITALS: BP 130/66
--- NOTE | 2020-06-20 04:33 | NUR ---
PT HAS HAD GOOD NIGHT THUS FAR. SON AT BEDSIDE FOR SUPPORT AND COMFORT. PT AMBULATED IN HALLS BEFORE BED AND STATES SHE HAS HAD A HEADACHE FOR A COUPLE DAYS THAT SHE HAS NOT GOTTEN RELIEF FROM ANY MED. PT HAS HAD A FEW PERIODS OF BRADYCARDIA INTO THE 30-40 BUT RETURNS TO 60s RELATIVELY QUICKLY. PT DENIES ANY NEGATIVE EFFECTS FROM THIS(CHEST PAIN, SOA, DIZZINESS) SHE DID GET A BIT ANGRY WITH NSG RE NOT BEING ABLE TO DRAW LABS FROM HER MIDLINE AND SHE REQUESTED IT BE REMOVED IF IT HAS NO FUNCTION FOR LAB DRAWS. THIS RN WILL PASS ALONG TO DAYSHIFT TO SEE IF WE CAN GET SOME ANSWERS TO THIS
[2020-06-20 05:13] LABS: CALCIUM 8.4 mg/dL (8.5-10.1); CREATININE 1.1 mg/dL (0.6-1.3); MAGNESIUM 2.2 mg/dL (1.8-2.4); POTASSIUM 3.8 mmol/L (3.5-5.1)
[2020-06-20 08:00] VITALS: BP 163/69
[2020-06-20] MEDS ORDERED: COZAAR 50 MG TA50 M1 PO (09:05)
[2020-06-20 10:39] VITALS: BP 163/69
--- NOTE | 2020-06-20 11:02 | EKG ---
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 : 1935 Requested By: Kishan Hernandez Order Number: [id number] Reading MD: Kishan Hernandez Measurements Intervals [place] Rate: 57 P: -9 MN: 220 QRS: -81 QRSD: 144 T: 10 QT: 455 QTc: 443 Interpretive Statements Sinus bradycardia Prolonged [place] interval RBBB and LAFB Probable left ventricular hypertrophy Compared to ECG 06/19/2020 08:35:30 No significant changes Electronically Signed On 06-20-2020 11:01:57 CDT by Kishan Hernandez [email or web address] <ELECTRONICALLY SIGNED> By: Kishan Hernandez MD, [facility] 06/20/20 1101 0808 Kishan Hernandez MD, [facility] /EPI
--- NOTE | 2020-06-20 11:12 | NUR ---
DC INTRUCTIONS REVIEWED WITH CLAUDIA. PT DISCHARGED VIA
== END 2020-06-20 11:15 | disposition home or self-care (01) | DRG 309 ==
LOC: M.ERS 08:43 → M.TBA-ER 14:47 → M.2W 17:26
PROVIDERS: Personal Emergency Response Attendant; ADMIT Internal Medicine; ATTEND Internal Medicine
DX: R00.1 Bradycardia, unspecified (principal); I50.32 Chronic diastolic (congestive) heart failure; T44.7X5A Adverse effect of beta-adrenoreceptor antagonists, initial encounter; J44.9 Chronic obstructive pulmonary disease, unspecified; I34.0 Nonrheumatic mitral (valve) insufficiency; I25.10 Atherosclerotic heart disease of native coronary artery without angina pectoris; R07.89 Other chest pain; E03.9 Hypothyroidism, unspecified; G89.29 Other chronic pain; M54.9 Dorsalgia, unspecified; F03.90 Unspecified dementia, unspecified severity, without behavioral disturbance, psychotic disturbance, mood disturbance, and anxiety; I44.30 Unspecified atrioventricular block; E78.5 Hyperlipidemia, unspecified; I11.0 Hypertensive heart disease with heart failure; I73.9 Peripheral vascular disease, unspecified; Z95.5 Presence of coronary angioplasty implant and graft; Z90.49 Acquired absence of other specified parts of digestive tract; Z79.82 Long term (current) use of aspirin; Z79.899 Other long term (current) drug therapy; Z79.01 Long term (current) use of anticoagulants; Z88.5 Allergy status to narcotic agent; Z88.8 Allergy status to other drugs, medicaments and biological substances; Z87.891 Personal history of nicotine dependence; Z90.710 Acquired absence of both cervix and uterus; Y92.89 Other specified places as the place of occurrence of the external cause; Z03.818 Encounter for observation for suspected exposure to other biological agents ruled out

== ENCOUNTER 2020-06-23 06:35 | Inpatient (IN) | payer MEDICARE, BC ==
[~2020-06-23] VITALS: Ht 172.7 cm; Wt 51.3 kg
--- NOTE | ~2020-06-23 | PROC ---
[address] [address] PROCEDURE REPORT Name: MARISOL GERARD Room: [address] ADM IN M.R.#: [id number] Admission: 06/23/20 Attend Phys: Lane Briceno Discharge: Date of : 31 Report #: [id number] THIS REPORT FOR: //name// cc: FAM - No family physician/PCP FAM - No family physician/PCP ~ THIS REPORT FOR: //name// For operative report, please see the Cath Report. By: 0828Medical Records Staff [place]IT[place] /DEMETRICE
[~2020-06-23 06:35] MED LIST changes: +CALCIUM500 MG PO; +COZAAR 50 MG TA50 M1 PO; +FOLIC ACID1 MG PO; +IRON18 M1 PO; +NAMENDA 10 MG T10 MG PO; +VITAMIN D325 MC3 PO
[2020-06-23 06:40] VITALS: BP 136/70
[2020-06-23 07:28] LABS: ABSOLUTE BASOPHILS 0.1 thou/uL (0.0-0.2); ABSOLUTE EOSINOPHILS 0.5 thou/uL (0.0-0.7); ABSOLUTE LYMPHOCYTES 1.7 thou/uL (0.8-5.3); ABSOLUTE MONOCYTES 0.3 thou/uL (0.0-1.2); ABSOLUTE NEUTROPHILS 2.8 thou/uL (1.6-8.1); BASOPHILS 1.1 %; EOSINOPHILS 8.7 %; HEMATOCRIT 33.1 % (37.0-47.0); HEMOGLOBIN 11.2 gm/dL (12.0-15.0); LYMPHOCYTES 31.6 %; MCH 33.6 pg (26.0-34.0); MCHC 33.9 g/dL (28.0-37.0); MCV 99.2 fL (80.0-100.0); MONOCYTES 6.3 %; MPV 9.2 fl. (7.2-11.1); NUCLEATED RBCS 0 /100WBC; PLATELET COUNT* 127 thou/uL (150-400); POLYS 52.3 %; RBC 3.34 mil/uL (4.20-5.00); RDW-CV 13.1 % (10.5-14.5); WBC 5.4 thou/uL (4.0-11.0)
[2020-06-23 07:39] LABS: APTT 25.1 Seconds (25.0-31.3); PROTIME 10.6 Seconds (9.20-11.50)
[2020-06-23 07:48] LABS: CK-MB MASS 0.8 ng/mL (<0.5-3.6)
[2020-06-23 08:04] LABS: ALBUMIN 3.2 g/dL (3.4-5.0); CALCIUM 8.2 mg/dL (8.5-10.1); CREATININE 1.2 mg/dL (0.6-1.3)
[2020-06-23 08:08] LABS: TOTAL BILIRUBIN 0.5 mg/dL (<0.1-1.0); TOTAL PROTEIN 6.2 g/dL (6.4-8.2)
--- NOTE | 2020-06-23 13:39 | EKG ---
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 : 1935 Requested By: Braydon Nogueira Order Number: [id number] MD: Kishan Hernandez Measurements Intervals [place] Rate: 64 P: 48 [place]: 360 QRS: -86 QRSD: 136 T: 66 QT: 449 QTc: 464 Interpretive Statements Sinus rhythm Prolonged [place] interval RBBB and LAFB Compared to ECG 06/20/2020 08:08:17 Sinus bradycardia no longer present Electronically Signed On 06-23-2020 13:39:21 CDT by Kishan Hernandez [email or web address] <ELECTRONICALLY SIGNED> By: Kishan Hernandez MD, [facility] 06/23/20 1339 0644 0644 Kishan Hernandez MD, [facility] /EPI
[2020-06-23 16:10] VITALS: BP 163/91
[2020-06-23 16:40] VITALS: BP 126/62
[2020-06-23 20:00] VITALS: BP 143/86
[2020-06-24] VITALS: BP 143/81
[2020-06-24 03:55] VITALS: BP 135/78
[2020-06-24 08:14] VITALS: BP 134/77
[2020-06-24 12:00] VITALS: BP 157/89
[2020-06-24 16:05] VITALS: BP 154/79
[2020-06-24 20:10] VITALS: BP 117/79
[2020-06-25] VITALS (9 sets, daily range): BP systolic 112–165; BP diastolic 79–96
--- NOTE | 2020-06-25 17:20 | CARD ---
[address] [address] CARDIAC CATH REPORT Name: MARISOL GERARD Room: [address] IN M.R.#: [id number] Admission: 06/23/20 Attend Phys: Lane Briceno Discharge: Date of : 33 Report #: [id number] THIS REPORT FOR: //name// cc: SHAMAR - No family physician/PCP FAM - No family physician/PCP ~ APPROVED REPORT Study performed: 06/25/2020 11:49:07 Patient Status: In-Patient Room #: Event Personnel: Kishan Hernandez Industrial Psychology Professor, Miguel Angel Albert RN RN, David Coffey SALES AND SERVICE ENGINEER Monitor, Bria Christopher RTR Scrub Exam: Insertion of Dual Chamber Permanent Pacemaker Indications: 2nd Degree Mobitz II The patient is a 85 year-old female with a 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 Implanted Devices: temporary ventricular pacing lead inserted through a 6 slovenian sheath placed in the right femoral vein. Procedure The patient underwent informed consent. We discussed the details of the procedure including the risks, which include, but not limited to bleeding, infection, vascular damage, cardiac perforation, and pneumothorax. She understood these risks and was willing to proceed. As such, she was brought to the EP/Cardiac Catheterization laboratory in a fasting and sedated state and prepped and draped in a sterile fashion, received IV antibiotics prior to initiation of the procedure and a venogram was performed showing patency of the left axillary vein. The patient underwent MAC anesthesia, with no anesthesia related complications. During this case, Fluoroscopy and visipaque 20cc were used for imaging. The left subclavian region was infiltrated with 2% Lidocaine subcutaneous anesthesia. A transverse incision was made in the left upper chest cavity. The subcutaneous pocket was formed via blunt dissection. Percutaneous venous access was achieved and an introducer sheath was inserted into the left Subclavian vein. Micropuncture needle used to enter the left subclavian vein. 6 slovenian peal away sheath was placed over the wire. 2 J wires were inserted through the sheath. Reinserted the 6 [place] [address] CARDIAC CATH REPORT Name: MARISOL GERARD Room: [address] IN [facility].#: [id number] Admission: 06/23/20 Attend Phys: Lane Briceno Discharge: Date of : 33 Report #: [id number] of the wires and removed one of the wires. Attempted to place the permanent pacing lead through the sheath, but was unalbe to advance the lead into the right atrium. The lead was removed and contrast was injected through the sheath. This appearred to show that the wires and sheath were in the superior vena cava. However, additional attempts at placing the pacing lead through the sheath were unsuccessful, suggesting that the lead was entering a dissection plane in the superior vena cava. Additional attempts were abandoned. The temporary pacemaker lead was sutured in place. Findings Specimens Removed: No Estimated Blood Loss: 5cc Conclusion Successful placement of a temporary pacing lead through the right femoral vein. Unable to place a permanent pacing lead through the left subclavian vein. Recommendations Plan on bringing the patient back to the catheterization lab at a later date and attempting permanent pacemaker placement via the right subclavian vein. <ELECTRONICALLY SIGNED> By: Kishan Hernandez MD, [facility] 06/25/201719 19 19Daberto Hernandez MD, [facility] /INF
[2020-06-26] VITALS (24 sets, daily range): BP systolic 129–185; BP diastolic 74–107
--- NOTE | 2020-06-26 14:44 | CON ---
[address] [address] CONSULTATION Name: MARISOL GERARD Room: [address] ADM IN M.R.#: [id number] Admission: 06/23/20 Attend Phys: Lane Briceno Discharge: Date of : 33 Report #: [id number] THIS REPORT FOR: //name// cc: SHAMAR Solano family physician/PCP SHAMAR - No family physician/PCP ~ THIS REPORT FOR: //name// CC: VINNY GOMEZ MD [facility] physician/PCP Donavan Gomez DATE OF SERVICE: 06/23/2020 CARDIOLOGY CONSULTATION HISTORY OF PRESENT ILLNESS: The patient is an 85-year-old white female who I was asked to see in the Emergency Room today after she was noted to be bradycardic. The history is obtained from some old records as well as the who is present. The patient has a long history of heart disease. She apparently had a coronary stent placed at [facility] years ago. Currently, she is followed by a dining services manager in [place], [place]. She has a history of dementia and memory loss. However, she continues to walk by herself and feed herself. She has chronic back pain and has had previous spinal injections in the past. She apparently has a history of thrombocytopenia. She came to [place] a week ago with pain in her left armpit. She was noted to be bradycardic at that time. I saw her in consultation and recommended stopping atenolol, which she was on at that time. The patient was then discharged. Since her discharge, she continues to have pain in the left armpit. She denied any trauma or rash. She denied any chest tightness, shortness of breath, lightheadedness, palpitations. On the monitor, she was noted to be bradycardic. Cardiology consultation was again requested. PAST MEDICAL HISTORY: Otherwise, she has had previous hysterectomy, cholecystectomy. She has a history of hypertension, hyperlipidemia. MEDICATIONS: Aricept, Synthroid, Lipitor, Plavix, losartan, aspirin. ALLERGIES: SHE HAS AN ALLERGY TO MORPHINE. FAMILY HISTORY: Negative for heart disease. SOCIAL HISTORY: She is . She and her live in [place]. Quit smoking years ago. No alcohol abuse. REVIEW OF SYSTEMS: No history of stroke, asthma, liver disease, kidney disease, cancer, [place] [address] CONSULTATION Name: MARISOL GERARD Room: [address]#: [id number] Admission: 06/23/20 Attend Phys: Lane Briceno Discharge: Date of : 33 Report #: [id number] PHYSICAL EXAMINATION: GENERAL: Revealed an elderly female lying in bed. She appeared in mild distress. VITAL SIGNS: She had a blood pressure of 150/60, pulse is 60. She is afebrile. HEENT: She was anicteric. Conjunctivae are pink. Mucous membranes moist. NECK: Veins are nondistended. CHEST: Clear to auscultation. CARDIOVASCULAR: Regular rate and rhythm. No significant murmurs. ABDOMEN: Soft. EXTREMITIES: Had no edema. Palpation of her left armpit is exquisitely tender. There were no masses, no rash. RADIOLOGICAL DATA: Her ECG shows sinus rhythm, left anterior fascicular block and a right bundle branch block. She was having episodes of 2:1 AV block consistent with Mobitz type 2 AV block. Her workup, she had an echocardiogram done last week that showed ejection fraction of 60% with biatrial enlargement, aortic sclerosis, mild aortic stenosis. The peak gradient across the aortic valve leaflets was 10 mmHg. Her x-rays, she had portable chest x-ray performed that showed clear lung montes, otherwise unremarkable. She actually had a CT scan of the chest last week when she was here that showed no pulmonary embolus, chronic lung changes. LABORATORY WORK: Showed sodium 139, creatinine 1.2. Liver function studies were normal. Troponins all 0.06. BNP 15. TSH 0.9. White blood cell count 5.4, hemoglobin 11.2. IMPRESSION AND RECOMMENDATIONS: 1. Mobitz type 2 second-degree atrioventricular block. Recommend permanent pacemaker. 2. Previous coronary artery disease. I would continue aspirin. No need for Plavix at this time. 3. Hypertension. The patient was taken off of beta john paul. 4. Hyperlipidemia. The patient is on a statin drug. 5. Dementia. 6. Left armpit pain. Suspect musculoskeletal. <ELECTRONICALLY SIGNED> By: Kishan Hernandez MD, [facility] 06/26/20 1444 [id number] Hernandez MD, FAC /nt
[2020-06-27] VITALS (13 sets, daily range): BP systolic 128–161; BP diastolic 67–102
[2020-06-27 09:33] LABS: HEMATOCRIT 38.4 % (37.0-47.0); HEMOGLOBIN 13.3 gm/dL (12.0-15.0); MCH 33.5 pg (26.0-34.0); MCHC 34.5 g/dL (28.0-37.0); MCV 97.1 fL (80.0-100.0); MPV 9.3 fl. (7.2-11.1); RBC 3.95 mil/uL (4.20-5.00); RDW-CV 12.6 % (10.5-14.5); WBC 6.9 thou/uL (4.0-11.0)
[2020-06-27 10:04] LABS: CALCIUM 8.5 mg/dL (8.5-10.1); CREATININE 0.8 mg/dL (0.6-1.3); POTASSIUM 3.8 mmol/L (3.5-5.1)
--- NOTE | 2020-06-27 17:56 | CARD ---
[address] [address] CARDIAC CATH REPORT Name: MARISOL GERARD Room: [address] IN .#: [id number] Admission: 06/23/20 Attend Phys: Lane Briceno Discharge: Date of : 33 Report #: [id number] THIS REPORT FOR: //name// cc: SHAMAR Rush No family physician/PCP SHAMAR - No family physician/PCP ~ APPROVED REPORT Study performed: 06/27/2020 12:54:25 Patient Status: In-Patient Room #: Event Personnel: Kishan Hernandez Batch Maker, Miguel Angel Albert RN RN, Charis Hdez RTR Scrub, Bria Christopher RTR Monitor Exam: Insertion of Dual Chamber Permanent Pacemaker Indications: 2nd Degree Mobitz II The patient is a 85 year-old female with a 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 Conscious Sedation Procedure start time: 14:05. Procedure end time: 15:37. See anesthesiologist notes for sedation/anesthesia/meds. Implanted Devices: Medtronic V-lead 5076-52 cm. Serial number: [id number]. Medtronic A-lead 5076-45 cm. Serial number: [id number]. Medtronic Generator: Niki Barclay [id number]. Serial number:[id number]. Procedure The patient underwent informed consent. We discussed the details of the procedure including the risks, which include, but not limited to bleeding, infection, vascular damage, cardiac perforation, and pneumothorax. She understood these risks and was willing to proceed. As such, she was brought to the EP/Cardiac Catheterization laboratory in a fasting and sedated state and prepped and draped in a sterile fashion, received IV antibiotics prior to initiation of the procedure and a venogram was performed showing patency of the right axillary vein. The patient underwent MAC anesthesia, with no anesthesia related complications. The patient was brought to the EP/Cardiac Catheterization laboratory and the right chest and shoulder were prepped and draped in a sterile manner. During this case, Fluoroscopy and visipaque 20[place] [address] CARDIAC CATH REPORT Name: MARISOL GERARD Room: [address] IN [facility].#: [id number] Admission: 06/23/20 Attend Phys: Lane Briceno Discharge: Date of : 33 Report #: [id number] imaging. The right subclavian region was infiltrated with 2% Lidocaine with Epinephrine subcutaneous anesthesia. A transverse incision was made in the right upper chest cavity. The subcutaneous pocket was formed via blunt dissection. Percutaneous venous access was achieved and an introducer sheath was inserted into the right Subclavian vein. Sheaths were positions using the modified Seldinger technique Through the introducer sheaths the atrial and ventricular lead wires were positioned in the right atrial appendage and right ventricular apex respectively. Utilizing fluoroscopic guidance, the atrial and ventricular lead wires were advanced over the wires and positioned in the right atria and right ventricle respectively. Capturing and sensing thresholds were verified. Electrode Parameters P Wave: 1.4 mv R Wave: 4.6 mv Atrial Threshold: 0.4 v @ 0.4 ms Ventricular Threshold: 2.4 v @ 0.6 ms Atrial Resistance: 627 ohm Ventricular Resistance: 532 ohm Single Chamber The atrial and ventricular leads were then secured using 0 silk sutures. The subcutaneous pocket was irrigated with ancef antibiotic solution.The ventricular lead was attached to the appropriate receptacle on the pulse generator and set screws firmly tightened to insure adequate contact and stability. Dual Chamber The atrial and ventricular leads were then secured using 0 silk sutures. The subcutaneous pocket was irrigated with ancef antibiotic solution.The atrial and ventricular leads were attached to the appropriate receptacles on the pulse generator and set screws firmly tightened to insure adequate contact and stability. The lead and pulse generator were placed into the subcutaneous pocket. Sharp and sponge counts were confirmed to be correct. At this time the pocket was closed subcutaneously with a 0 Vicryl and 2.0 Vicryl and the skin was closed with a 4.0 Vicryl. The operative site was dressed in sterile fashion with dermabond and the patient was transferred to the floor in stable condition. Complications The patient tolerated the procedure well and there were no [facility] [address] [place] [address] CARDIAC CATH REPORT Name: MARISOL GERARD Room: [address] IN [facility].#: [id number] Admission: 06/23/20 Attend Phys: Lane Briceno Discharge: Date of : 33 Report #: [id number] complications associated with the procedure. Findings Specimens Removed: No Estimated Blood Loss: 5cc Conclusion 9.1 mnutes fluoro. 9 mgy. 326.61 DAP. successful placement of a dual chamber pacemaker and leads <ELECTRONICALLY SIGNED> By: Kishan Hernandez MD, FACC 06/27/20 1756 55 Daberto Hernandez MD, FACC /INF
[2020-06-28] VITALS (9 sets, daily range): BP systolic 79–128; BP diastolic 41–90
[2020-06-28 09:05] LABS: ABSOLUTE BASOPHILS 0.1 thou/uL (0.0-0.2); ABSOLUTE EOSINOPHILS 0.4 thou/uL (0.0-0.7); ABSOLUTE LYMPHOCYTES 0.6 thou/uL (0.8-5.3); ABSOLUTE MONOCYTES 0.5 thou/uL (0.0-1.2); ABSOLUTE NEUTROPHILS 7.1 thou/uL (1.6-8.1); BASOPHILS 0.6 %; EOSINOPHILS 4.9 %; HEMATOCRIT 32.4 % (37.0-47.0); LYMPHOCYTES 7.2 %; MCH 33.5 pg (26.0-34.0); MCHC 34.3 g/dL (28.0-37.0); MCV 97.5 fL (80.0-100.0); MONOCYTES 5.8 %; MPV 9.1 fl. (7.2-11.1); NUCLEATED RBCS 0 /100WBC; PLATELET COUNT* 116 thou/uL (150-400); POLYS 81.5 %; RBC 3.32 mil/uL (4.20-5.00); RDW-CV 12.7 % (10.5-14.5); WBC 8.7 thou/uL (4.0-11.0)
[2020-06-28 09:13] LABS: HEMOGLOBIN 11.1 gm/dL (12.0-15.0)
[2020-06-28 09:31] LABS: CALCIUM 8.3 mg/dL (8.5-10.1); POTASSIUM 3.8 mmol/L (3.5-5.1)
[2020-06-28] MEDS ORDERED: ATENOLOL 50MG T50 M1 PO (10:07)
[2020-06-28] MEDS ORDERED: TRAMADOL 50 MG50 MG PO (10:25)
[2020-06-28] MEDS ORDERED: TYLENOL 8 HOUR650 MG PO (11:05)
[2020-06-28] MEDS ORDERED: COZAAR 50 MG TA50 M1 PO (12:12)
== END 2020-06-28 15:17 | disposition home or self-care (01) | DRG 243 ==
LOC: M.ERS 06:35 → M.2W 07:38 → M.TBA-ER 07:38 → M.2W 16:23 → M.ICU 06-25 14:52 → M.2W 06-27 14:45
PROVIDERS: Family Medicine; Internal Medicine; Internal Medicine Cardiovascular Disease; ADMIT Internal Medicine; ATTEND Internal Medicine
PROC: B51M1ZZ Fluoroscopy of Right Upper Extremity Veins using Low Osmolar Contrast (ICD-10-PCS; principal; 2020-06-25)
PROC: 5A1223Z Performance of Cardiac Pacing, Continuous (ICD-10-PCS; principal; 2020-06-25)
PROC: B51N1ZZ Fluoroscopy of Left Upper Extremity Veins using Low Osmolar Contrast (ICD-10-PCS; 2020-06-25)
PROC: 02H63JZ Insertion of Pacemaker Lead into Right Atrium, Percutaneous Approach (ICD-10-PCS; 2020-06-27)
PROC: 02HK3JZ Insertion of Pacemaker Lead into Right Ventricle, Percutaneous Approach (ICD-10-PCS; 2020-06-27)
PROC: 0JH606Z Insertion of Pacemaker, Dual Chamber into Chest Subcutaneous Tissue and Fascia, Open Approach (ICD-10-PCS; 2020-06-27)
DX: I44.1 Atrioventricular block, second degree (principal); E44.0 Moderate protein-calorie malnutrition; Z68.1 Body mass index [BMI] 19.9 or less, adult; I50.32 Chronic diastolic (congestive) heart failure; R07.81 Pleurodynia; I25.10 Atherosclerotic heart disease of native coronary artery without angina pectoris; F03.90 Unspecified dementia, unspecified severity, without behavioral disturbance, psychotic disturbance, mood disturbance, and anxiety; J44.9 Chronic obstructive pulmonary disease, unspecified; E78.5 Hyperlipidemia, unspecified; G43.909 Migraine, unspecified, not intractable, without status migrainosus; Z20.828 Contact with and (suspected) exposure to other viral communicable diseases; Z95.5 Presence of coronary angioplasty implant and graft; Z90.49 Acquired absence of other specified parts of digestive tract; Z88.6 Allergy status to analgesic agent; Z88.1 Allergy status to other antibiotic agents; Z88.8 Allergy status to other drugs, medicaments and biological substances; Z90.710 Acquired absence of both cervix and uterus; Z87.891 Personal history of nicotine dependence; Z79.899 Other long term (current) drug therapy

== ENCOUNTER 2020-07-06 21:18 | Emergency (ER) | payer MEDICARE, BC ==
[~2020-07-06] VITALS: Ht 172.7 cm; Wt 53.5 kg
[~2020-07-06 21:18] MED LIST changes: +ATENOLOL 50MG T50 M1 PO; +TYLENOL 8 HOUR650 MG PO
[2020-07-06] MEDS ORDERED: TRAMADOL 50 MG50 MG PO (21:36)
[2020-07-06 22:16] LABS: ABSOLUTE BASOPHILS 0.1 thou/uL (0.0-0.2); ABSOLUTE EOSINOPHILS 0.3 thou/uL (0.0-0.7); ABSOLUTE LYMPHOCYTES 1.5 thou/uL (0.8-5.3); ABSOLUTE MONOCYTES 0.6 thou/uL (0.0-1.2); BASOPHILS 1.1 %; EOSINOPHILS 4.6 %; HEMOGLOBIN 10.3 gm/dL (12.0-15.0); LYMPHOCYTES 20.5 %; MCH 33.4 pg (26.0-34.0); MCHC 34.3 g/dL (28.0-37.0); MCV 97.7 fL (80.0-100.0); MONOCYTES 7.7 %; MPV 8.6 fl. (7.2-11.1); NUCLEATED RBCS 0 /100WBC; PLATELET COUNT* 194 thou/uL (150-400); POLYS 66.1 %; RBC 3.07 mil/uL (4.20-5.00); RDW-CV 12.9 % (10.5-14.5); WBC 7.5 thou/uL (4.0-11.0)
[2020-07-06 22:20] LABS: CALCIUM 8.5 mg/dL (8.5-10.1); CREATININE 1.1 mg/dL (0.6-1.3); POTASSIUM 4.4 mmol/L (3.5-5.1)
[2020-07-06 22:30] LABS: ALBUMIN 3.1 g/dL (3.4-5.0); MAGNESIUM 1.6 mg/dL (1.8-2.4); TOTAL BILIRUBIN 0.7 mg/dL (<0.1-1.0); TOTAL PROTEIN 6.3 g/dL (6.4-8.2)
[2020-07-06 22:33] LABS: PROTIME 10.7 Seconds (9.20-11.50)
[2020-07-06 23:16] LABS: URINE BILIRUBIN NEGATIVE (Negative); URINE BLOOD NEGATIVE (Negative); URINE CLARITY CLEAR; URINE COLOR YELLOW; URINE GLUCOSE-RANDOM NEGATIVE (Negative); URINE KETONES NEGATIVE (Negative); URINE LEUKOCYTES-REFLEX NEGATIVE (Negative); URINE NITRITE-REFLEX NEGATIVE (Negative); URINE PROTEIN NEGATIVE (Negative); URINE SPECIFIC GRAVITY <= 1.005 (1.005-1.030); URINE UROBILINOGEN 0.2 E.U./dl (0.2-1.0)
[2020-07-06 23:45] VITALS: BP 136/70
--- NOTE | 2020-07-08 11:49 | EKG ---
[place] [address] ELECTROCARDIOGRAM REPORT Name: MARISOL GERARD Room: [facility]#: [id number] Admission: 07/06/20 Attend Phys: Discharge: 07/06/20 Date of : 31 Date of Service: 07/06/202124 Report #: [id number] THIS REPORT FOR: //name// [facility] ED Test Date: 2020-07-06 Test Time: 21:25:16 Pat Name: MARISOL GERARD Department: Room: Gender: F Rides Supervisor: KEANU : 1935 Requested By: Fe Fishman Order Number: [id number] MD: Kishan Hernandez Measurements Intervals [place] Rate: 59 P: [place]: 273 QRS: -81 QRSD: 141 T: 67 QT: 439 QTc: 435 Interpretive Statements Atrial-ventricular dual-paced complexes No further rhythm analysis attempted due to paced rhythm Compared to ECG 06/23/2020 06:44:30 Sinus rhythm no longer present Electronically Signed On 07-08-2020 11:49:12 CDT by Kishan Hernandez [email or web address] <ELECTRONICALLY SIGNED> By: Kishan Hernandez MD, FAC 07/08/20 1149 24 24 Kishan Hernandez MD, [facility] /EPI
== END 2020-07-06 23:45 | disposition home or self-care (01) ==
LOC: M.ERS 21:18
PROVIDERS: Emergency Medicine
DX: R07.89 Other chest pain (principal); I25.10 Atherosclerotic heart disease of native coronary artery without angina pectoris; J44.9 Chronic obstructive pulmonary disease, unspecified; F03.90 Unspecified dementia, unspecified severity, without behavioral disturbance, psychotic disturbance, mood disturbance, and anxiety; Z95.5 Presence of coronary angioplasty implant and graft; Z95.0 Presence of cardiac pacemaker; Z90.49 Acquired absence of other specified parts of digestive tract; Z88.6 Allergy status to analgesic agent; Z88.8 Allergy status to other drugs, medicaments and biological substances

== ENCOUNTER 2021-07-02 16:35 | Inpatient (IN) | payer MEDICARE, BC ==
[~2021-07-02] VITALS: Ht 172.7 cm; Wt 68.4 kg
--- NOTE | ~2021-07-02 | CON ---
[address] [address] CONSULTATION Name: MARISOL GERARD Room: [address] IN M.R.#: [id number] Admission: 07/02/21 Attend Phys: Yvon Schmidt Discharge: 07/05/21 Date of : 33 Report #: [id number] THIS REPORT FOR: cc: Lamin Lou MD, Bruce D. MD Blick, David R. MD [facility] ~ cc: Lamin Lou MD DATE OF CONSULTATION: 07/05/2021 HISTORY OF PRESENT ILLNESS: The patient is an 86-year-old white female who came to the emergency room yesterday complaining of feeling weak. The patient has a history of dementia and is primarily in a wheelchair. She has had previous placement of an abdominal aortic aneurysm stent graft in the past. I inserted an MRI compatible pacemaker 2 years ago when she was noted to have second-degree AV block, Mobitz type 2. Previous echocardiogram showed an ejection fraction only 25%. I last checked her pacemaker in the office in December of this year. She was brought to the emergency room 3 days ago by family members complaining of weakness. She has had some back pain and a cough. She is very hard of hearing. She has not been taking her medications. There has been no history of chest pain or syncope. PAST MEDICAL HISTORY: Otherwise, significant for cholecystectomy, appendectomy, hypertension, hyperlipidemia. CURRENT MEDICATIONS: Include Synthroid, Aricept, Namenda, Ultram, Plavix, Lipitor. ALLERGIES: SHE HAS PREVIOUS INTOLERANCE TO CODEINE AND MORPHINE. FAMILY HISTORY: Negative for heart disease. SOCIAL HISTORY: She is . She and her live in [place], [place]. She no longer smokes. No history of alcohol abuse. REVIEW OF SYSTEMS: She had no history of stroke, asthma, liver disease, kidney disease, chronic skin condition, cancer or psychiatric illness. PHYSICAL EXAMINATION: GENERAL: Revealed an elderly, frail-appearing female, lying in bed. She appeared in no distress. VITAL SIGNS: Blood pressure is 120/80, pulse 60, she is afebrile. HEENT: She was anicteric. Conjunctivae pink. Mucous membranes appeared dry. NECK: Veins not appeared distended. CHEST: [place] [address] CONSULTATION Name: MARISOL GERARD Room: [address]#: [id number] Admission: 07/02/21 Attend Phys: Yvon Schmidt Discharge: 07/05/21 Date of : 33 Report #: [id number] CARDIAC: Regular rate and rhythm, no significant murmur. ABDOMEN: Soft. EXTREMITIES: Had no pitting edema. SKIN: Cool and dry. NEUROLOGIC: Nonfocal. IMAGING: ECG showed P-wave sensing and ventricular capture. The patient had an echocardiogram performed 2 days ago when she was admitted that showed an ejection fraction of 25%, left ventricular dilatation, biatrial enlargement. There is evidence of mild aortic stenosis with a peak gradient across the aortic valve leaflets of 8 mmHg. There was evidence of moderate mitral regurgitation. Her x-rays on admission, she had venous duplex scan that showed no DVT. She had a CT scan of the chest using a PE protocol that showed no pulmonary embolus, infiltrates suggestive of pneumonia, cardiomegaly, coronary calcifications. LABORATORY DATA: Creatinine 1.2, potassium 4.6. Her BNP 74498. Her white blood cell count 6.5, hemoglobin 13.6. Her COVID antigen stat test was negative. IMPRESSION AND RECOMMENDATIONS: 1. Previous placement of aortic abdominal aneurysm stent graft. 2. Cardiomyopathy. The patient has been on carvedilol and losartan in the past. I would consider adding Aldactone. 3. Hypertension. The patient is on a beta-john paul and ARB. 4. High-degree AV block. Normal dual chamber pacemaker function. 5. Dementia. 6. Hyperlipidemia. The patient is on a statin drug. By: [id number] [id number] Hernandez MD, FACC /nt
[~2021-07-02 16:35] MED LIST changes: +SYNTHROID88 MC1 PO; -SYNTHROID88 MCG PO
[2021-07-02 17:13] VITALS: BP 141/88
[2021-07-02 17:54] LABS: ABSOLUTE BASOPHILS 0.1 thou/uL (0.0-0.2); ABSOLUTE EOSINOPHILS 0.3 thou/uL (0.0-0.7); ABSOLUTE MONOCYTES 0.3 thou/uL (0.0-1.2); ABSOLUTE NEUTROPHILS 4.2 thou/uL (1.6-8.1); EOSINOPHILS 5.2 %; HEMATOCRIT 40.3 % (37.0-47.0); HEMOGLOBIN 13.3 gm/dL (12.0-15.0); LYMPHOCYTES 16.6 %; MCH 32.2 pg (26.0-34.0); MCV 97.4 fL (80.0-100.0); MONOCYTES 5.1 %; NUCLEATED RBCS 0 /100WBC; PLATELET COUNT* 137 thou/uL (150-400); POLYS 72.1 %; RBC 4.14 mil/uL (4.20-5.00); RDW-CV 14.6 % (10.5-14.5); WBC 5.8 thou/uL (4.0-11.0)
[2021-07-02 18:03] LABS: CALCIUM 8.4 mg/dL (8.5-10.1); CREATININE 1.2 mg/dL (0.6-1.3); POTASSIUM 3.6 mmol/L (3.5-5.1)
[2021-07-02 18:08] LABS: ALBUMIN 3.3 g/dL (3.4-5.0); TOTAL BILIRUBIN 0.5 mg/dL (<0.1-1.0); TOTAL PROTEIN 6.5 g/dL (6.4-8.2)
[2021-07-02 22:03] VITALS: BP 140/99
[2021-07-02 22:30] VITALS: BP 144/92
[2021-07-03 02:07] LABS: URINE BILIRUBIN NEGATIVE (Negative); URINE BLOOD NEGATIVE (Negative); URINE CLARITY CLEAR; URINE COLOR STRAW; URINE GLUCOSE-RANDOM NEGATIVE (Negative); URINE KETONES NEGATIVE (Negative); URINE LEUKOCYTES-REFLEX NEGATIVE (Negative); URINE NITRITE-REFLEX NEGATIVE (Negative); URINE PROTEIN NEGATIVE (Negative); URINE UROBILINOGEN 0.2 E.U./dl (0.2-1.0)
[2021-07-03 04:23] VITALS: BP 131/97
--- NOTE | 2021-07-03 06:37 | NUR ---
PT ADMITTED TO ROOM 211 DURING EYEGLASS MAKER; VSS, DIASTOLIC BP SLIGHTLY ELEVATED, ROOM AIR, A+OX1-2 CONFUSED, FORGETFUL, [place], IMPULSIVE, UP WITH 1, PREFERRS FEMALES, BED ALARM ON. SHE IS ABLE TO COMMUNICATE HER NEEDS TO STAFF WITH SOME DIFFICULTY; SHE IS [id number]-ZCLBBAU, FORGETFUL, AND IMPULSIVE. CURRRENT PAIN MEDICATION REGIMEN HAS BEEN ADEQUATE FOR CONTROLLING HER PAIN UP TO THIS TIME. NPO AT MIDNIGHT PER MD ADMITTING ORDER.
[2021-07-03 08:00] VITALS: BP 140/98
--- NOTE | 2021-07-03 10:09 | EKG ---
[place] [address] ELECTROCARDIOGRAM REPORT Name: MARISOL GERARD Room: [address] ADM IN .R.#: [id number] Admission: 07/02/21 Attend Phys: Kvng Sheriff Discharge: Date of : 31 Date of Service: 07/02/21 1722 Report #: [id number] THIS REPORT FOR: //name// [facility] ED Test Date: 2021-07-02 Test Time: 17:22:28 Pat Name: MARISOL GERARD Department: Room: [facility] Gender: F Splitting Machine Tender: DEMETRICE : 1935 Requested By: Татьяна Mederos Order Number: [id number] MD: Kishan Hernandez Measurements Intervals [place] Rate: 91 P: 195 MA: 64 QRS: -66 QRSD: 179 T: 129 QT: 426 QTc: 525 Interpretive Statements Atrial-sensed ventricular-paced rhythm No further analysis attempted due to paced rhythm Compared to ECG 07/06/2020 21:25:16 AV dual-paced complex(es) or rhythm no longer present Electronically Signed On 07-03-2021 10:08:53 CDT by Kishan Hernandez [email or web address] <ELECTRONICALLY SIGNED> By: Kishan Hernandez MD, FAC 07/03/21 1008 172 172 Kishan Hernandez MD, FAC /EPI
[2021-07-03 10:30] LABS: CALCIUM 8.2 mg/dL (8.5-10.1); CREATININE 1.1 mg/dL (0.6-1.3); POTASSIUM 3.7 mmol/L (3.5-5.1)
[2021-07-03 12:00] VITALS: BP 121/98
--- NOTE | 2021-07-03 13:07 | NUR ---
Cm spoke with Pt's son in the hallway. Pt is A&O. Resides at home with . Independent, cooks. No DME. Hx of [facility]. No hx of SNF. [place]al [place] home at [place]. No needs anticipated per son. Following.
--- NOTE | 2021-07-03 15:57 | EKG ---
[place] [address] ELECTROCARDIOGRAM REPORT Name: MARISOL GERARD Room: [address] ADM IN .R.#: [id number] Admission: 07/02/21 Attend Phys: Kvng Sheriff Discharge: Date of : 31 Date of Service: 07/03/21 1201 Report #: [id number] THIS REPORT FOR: //name// [facility] Test Date: 2021-07-03 Test Time: 12:01:22 Pat Name: MARISOL GERARD Department: Room: [address] Gender: F Informatics Developer: SJ : 1935 Requested By: Kvng Sheriff Order Number: [id number] Reading MD: Kishan Hernandez Measurements Intervals [place] Rate: 85 P: -49 IA: 231 QRS: -79 QRSD: 156 T: -35 QT: 456 QTc: 543 Interpretive Statements Ventricular-paced complexes with pvc No further analysis attempted due to paced rhythm Compared to ECG 07/02/2021 17:22:28 no change Electronically Signed On 07-03-2021 15:56:52 CDT by Kishan Hernandez [email or web address] <ELECTRONICALLY SIGNED> By: Kishan Hernandez MD, [facility] 07/03/21 1556 1201 1201 Kishan Hernandez MD, [facility] /EPI
[2021-07-03 16:00] VITALS: BP 142/96
[2021-07-03 20:00] VITALS: BP 140/82
[2021-07-04] VITALS: BP 148/103
[2021-07-04 04:00] VITALS: BP 158/115
[2021-07-04 04:11] LABS: ABSOLUTE BASOPHILS 0.1 thou/uL (0.0-0.2); ABSOLUTE EOSINOPHILS 0.2 thou/uL (0.0-0.7); ABSOLUTE LYMPHOCYTES 0.9 thou/uL (0.8-5.3); ABSOLUTE MONOCYTES 0.3 thou/uL (0.0-1.2); ABSOLUTE NEUTROPHILS 4.4 thou/uL (1.6-8.1); BASOPHILS 0.9 %; EOSINOPHILS 3.1 %; HEMATOCRIT 41.5 % (37.0-47.0); HEMOGLOBIN 13.7 gm/dL (12.0-15.0); LYMPHOCYTES 15.7 %; MCH 32.2 pg (26.0-34.0); MCHC 32.9 g/dL (28.0-37.0); MCV 97.8 fL (80.0-100.0); MONOCYTES 5.1 %; MPV 9.2 fl. (7.2-11.1); NUCLEATED RBCS 0 /100WBC; PLATELET COUNT* 146 thou/uL (150-400); POLYS 75.2 %; RBC 4.25 mil/uL (4.20-5.00); RDW-CV 14.7 % (10.5-14.5); WBC 5.9 thou/uL (4.0-11.0)
[2021-07-04 04:26] LABS: CALCIUM 8.5 mg/dL (8.5-10.1); CREATININE 1.2 mg/dL (0.6-1.3); POTASSIUM 3.7 mmol/L (3.5-5.1)
--- NOTE | 2021-07-04 06:13 | NUR ---
PATIENT SLEPT PART OF THE NIGHT. SON REMAINS AT BEDSIDE. IV REMAINS SALINE LOCKED. PATIENT WAS GIVEN PAIN MEDICINE TWICE THIS SHIFT AND NAUSEA MEDICINE ONCE THIS SHIFT. PATIENT VOIDS SMALL AMOUNTS FREQUENTLY. PATIENT REMAINS ON OXYGEN AT 3L NC. WILL CONTINUE TO MONITOR.
[2021-07-04 08:00] VITALS: BP 134/102
--- NOTE | 2021-07-04 11:52 | 2DMMODE ---
[place] [address] 2 D/M-MODE ECHOCARDIOGRAM Name: MARISOL GERARD Room: [address] ADM IN [facility]#: [id number] Admission: 07/02/21 Attend Phys: Kvng Sheriff Discharge: Date of : 31 Date of Service: 07/04/21 1151 Report #: [id number] THIS REPORT FOR: cc: Lamin Lou MD, Bruce D. MD Liston, Michael J. MD [facility] ~ APPROVED REPORT Study performed: 07/04/2021 10:15:57 EXAM: Comprehensive 2D, Doppler, and color-flow Echocardiogram Patient Location: In-Patient Room #: [facility] Status: routine BSA: 1.81 HR: 68 bpm BP: 158/115 mmHg Rhythm: NSR Other Information Study Quality: Good Indications Congestive Heart Failure Dyspnea 2D Dimensions IVSd: 9.24 (7-11mm) LVOT Diam: 17.44 (18-24mm) LVDd: 55.04 mm PWd: 9.08 (7-11mm) Ascending Ao: 36.82 (22-36mm) LVDs: 43.69 (25-40mm) Aortic Root: 31.04 mm Volumes Left Atrial Volume (Systole) LA ESV Index: 58.90 mL/m2 Aortic Valve AoV Peak Evan.: 1.38 m/s AO Peak Gr.: 7.61 mmHg LVOT Max P.41 mmHg AO Mean Gr.: 4.22 mmHg LVOT Mean P.63 mmHg LVOT Max V: 0.92 m/s AO V2 VTI: 25.52 cm LVOT Mean V: 0.59 m/s TIERRA (VTI): 1.33 cm2 LVOT V1 VTI: 14.26 [place] [address] 2 D/M-MODE ECHOCARDIOGRAM Name: MARISOL GERARD Room: [address] IN [facility]#: [id number] Admission: 07/02/21 Attend Phys: Kvng Sheriff Discharge: Date of : 31 Date of Service: 07/04/21 1151 Report #: [id number] Mitral Valve E/A Ratio: 1.92 MV Decel. Time: 155.88 ms MV E Max Evan.: 1.21 m/s MV PHT: 45.20 ms MVA (PHT): 4.87 cm2 TDI E/Lateral E': 20.17 E/Medial E': 24.20 Medial E' Evan.: 0.05 m/s Lateral E' Evan.: 0.06 m/s Pulmonary Valve PV Peak Evan.: 0.73 m/s PV Peak Gr.: 2.12 mmHg Tricuspid Valve RAP Estimate: 5.00 mmHg TR Peak Gr.: 43.02 mmHg RVSP: 48.00 mmHg PA Pressure: 48.00 mmHg Left Ventricle Left ventricle is mildly dilated. There is severe global hypokinesis of the left ventricle. There is normal left ventricular wall thickness. Left ventricular systolic function is severely decreased. LVEF is 20-25%. Transmitral Doppler flow pattern suggests restrictive physiology. Right Ventricle The right ventricle is normal size. The right ventricular systolic function is normal. Atria Left atrium is severely dilated. Right atrium is moderately dilated. Aortic Valve Moderate aortic valve sclerosis. No aortic regurgitation is present. Mild aortic stenosis. Mitral Valve There is mitral annular calcification. Moderate mitral regurgitation. No evidence of mitral valve stenosis. Tricuspid Valve The tricuspid valve is normal in structure. Moderate tricuspid regurgitation. Moderate [place] [address] 2 D/M-MODE ECHOCARDIOGRAM Name: MARISOL GERARD Room: [address]#: [id number] Admission: 07/02/21 Attend Phys: Kvng Sheriff Discharge: Date of : 31 Date of Service: 07/04/21 1151 Report #: [id number] Pulmonic Valve The pulmonary valve is normal in structure. Mild pulmonic regurgitation. Great Vessels The aortic root is normal in size. IVC is normal in size and collapses >50% with inspiration. Pericardium There is no pericardial effusion. Left pleural effusion. <Conclusion> Left ventricle is mildly dilated. There is normal left ventricular wall thickness. Left ventricular systolic function is severely decreased. LVEF is 20-25%. Transmitral Doppler flow pattern suggests restrictive physiology. There is severe global hypokinesis of the left ventricle. Left atrium is severely dilated. Right atrium is moderately dilated. Right atrium is moderately dilated. Moderate aortic valve sclerosis. Mild aortic stenosis. Moderate mitral regurgitation. Moderate tricuspid regurgitation. Moderate pulmonary hypertension. Left pleural effusion. <ELECTRONICALLY SIGNED> By: Blas Gongora MD, FACC 07/04/21 1151 1151 1151 Blas Gongora MD, FACC /INF
--- NOTE | 2021-07-04 12:59 | NUR ---
Anticipate dc in a few days. Continue ivabx. O2 needs up over night.
[2021-07-04 13:29] VITALS: BP 108/76
[2021-07-04 17:22] VITALS: BP 120/93
[2021-07-04 20:00] VITALS: BP 101/60
[2021-07-05] VITALS: BP 113/77
[2021-07-05 04:00] VITALS: BP 147/92
[2021-07-05 04:02] LABS: HEMATOCRIT 41.9 % (37.0-47.0); HEMOGLOBIN 13.6 gm/dL (12.0-15.0); MCHC 32.5 g/dL (28.0-37.0); MCV 98.4 fL (80.0-100.0); MPV 9.8 fl. (7.2-11.1); RBC 4.26 mil/uL (4.20-5.00); RDW-CV 14.5 % (10.5-14.5); WBC 6.5 thou/uL (4.0-11.0)
[2021-07-05 04:26] LABS: ALBUMIN 3.3 g/dL (3.4-5.0); CALCIUM 8.8 mg/dL (8.5-10.1); CREATININE 1.2 mg/dL (0.6-1.3); POTASSIUM 4.6 mmol/L (3.5-5.1); TOTAL BILIRUBIN 0.8 mg/dL (<0.1-1.0); TOTAL PROTEIN 6.4 g/dL (6.4-8.2)
--- NOTE | 2021-07-05 06:04 | NUR ---
ASSUMED PT CARE AT APPROX 1930. PT IS AWAKE AND ORIENTED TO SELF ONLY, FORGETFUL, CONFUSED MOST OF THE TIME. PT IS NOT IN DISTRESS, NO DESATURATIONS NOTED ON 3L OF O2/NC. ZOFRAN PO GIVEN FOR NAUSEA, WITH RELIEF. NO ACUTE CHANGES THIS SHIFT. CALL LIGHT WITHIN REACH. HOURLY ROUNDING DONE FOR PT SAFETY. HIGH FALL PRECAUTIONS IN PLACE.
[2021-07-05 08:20] VITALS: BP 148/100
[2021-07-05] MEDS ORDERED: SPIRONOLACTONE25 MG PO (10:20)
[2021-07-05] MEDS ORDERED: LEVOFLOXACIN500 MG PO (10:20)
[2021-07-05] MEDS ORDERED: IPRAT-ALBUT 0.5-3 ML INH ×2 (10:20→16:56)
[2021-07-05] MEDS ORDERED: PREDNISONE 10 M10 M1 PO (10:20)
[2021-07-05] MEDS ORDERED: CARVEDILOL3.125 MG PO (10:20)
[2021-07-05] MEDS ORDERED: NEBULIZER MISCELL (10:20)
[2021-07-05 12:00] VITALS: BP 122/89
[2021-07-05 12:17] VITALS: BP 148/100
--- NOTE | 2021-07-05 12:18 | NUR ---
Pt discharging home today, declined HH, but agreed to f/u with outpt cardiac rehab nurse. Son in agreement with POC. Pt does not qualify for home o2.
--- NOTE | 2021-07-05 14:15 | NUR ---
ORDERD NOTED FOR OKAY TO D/C HOME THIS SHIFT PER ONCE NAUSEA BETTER AND ABLE TO EAT- ZOFRAN GIVEN X2 THIS SHIFT WITH SLIGHT IMPROVEMENT NOTED- PT SON UPSET WITH WAITTING ANY FURTHER, STATES " HERE NAUSEA IS WHAT IT IS, SHE IS TAKING NEW MEDICAITONS SHE DOESN'T NORMALLY TAKE AND SHE DOESN'T LIKE THE FOOD HERE; SHE WILL EAT AND BE FINE WHEN SHE GET'S HOME"- KOHINOOR OPERATOR D/C'D PRIOR TO D/C- D/C EDUCATION/TEACHING/NEEDED FOLLOW UP'S COMMUNICATED TO SON WITH SANIA UNDERSTANDING NOTED PER SON- WRITTEN EDUCATION PROVIDED TO SON WITH ALL QUESTIONS AND CONCERNS ADDRESSED PRIOR TO D/C- BELONGINGS PACKED AND ACCOUNTED FOR PER SON- PT DRESSED PER TECH- DHARMESHLTY AWAITING RIDE FOR D/C- ALL NEEDS MET AT THIS TIME
[2021-07-05 14:44] VITALS: BP 148/100
== END 2021-07-05 14:46 | disposition home or self-care (01) | DRG 177 ==
LOC: M.ERS 16:35 → M.TBA-ER 19:47 → M.2W 19:47
PROVIDERS: Internal Medicine; Nurse Practitioner Family; ADMIT Internal Medicine; ATTEND Internal Medicine
DX: J69.0 Pneumonitis due to inhalation of food and vomit (principal); G93.41 Metabolic encephalopathy; J96.21 Acute and chronic respiratory failure with hypoxia; I50.43 Acute on chronic combined systolic (congestive) and diastolic (congestive) heart failure; I42.9 Cardiomyopathy, unspecified; Z20.822 Contact with and (suspected) exposure to COVID-19; F03.90 Unspecified dementia, unspecified severity, without behavioral disturbance, psychotic disturbance, mood disturbance, and anxiety; J44.9 Chronic obstructive pulmonary disease, unspecified; I11.0 Hypertensive heart disease with heart failure; E78.5 Hyperlipidemia, unspecified; I25.10 Atherosclerotic heart disease of native coronary artery without angina pectoris; Z95.5 Presence of coronary angioplasty implant and graft; Z90.710 Acquired absence of both cervix and uterus; Z90.49 Acquired absence of other specified parts of digestive tract; Z79.899 Other long term (current) drug therapy; Z88.6 Allergy status to analgesic agent; Z88.8 Allergy status to other drugs, medicaments and biological substances; Z95.0 Presence of cardiac pacemaker

== ENCOUNTER 2021-07-08 01:49 | Inpatient (IN) | payer MEDICARE, BC ==
[~2021-07-08] VITALS: Ht 167.6 cm; Wt 73.0 kg
[~2021-07-08 01:49] MED LIST changes: +CARVEDILOL3.125 MG PO; +IPRAT-ALBUT 0.5-3 ML INH; +LEVOFLOXACIN500 MG PO; +NEBULIZER MISCELL; +PREDNISONE 10 M10 M1 PO; +SPIRONOLACTONE25 MG PO
[2021-07-08 01:57] VITALS: BP 125/85
[2021-07-08 03:40] LABS: URINE BILIRUBIN NEGATIVE (Negative); URINE BLOOD TRACE (Negative); URINE CLARITY CLEAR; URINE COLOR YELLOW; URINE GLUCOSE-RANDOM NEGATIVE (Negative); URINE KETONES NEGATIVE (Negative); URINE LEUKOCYTES-REFLEX NEGATIVE (Negative); URINE NITRITE-REFLEX NEGATIVE (Negative); URINE PROTEIN 2+ (Negative); URINE SPECIFIC GRAVITY >= 1.030 (1.005-1.030); URINE UROBILINOGEN 0.2 E.U./dl (0.2-1.0)
[2021-07-08 03:47] LABS: MCH 32.1 pg (26.0-34.0); MCHC 33.3 g/dL (28.0-37.0); MCV 96.3 fL (80.0-100.0); MPV 9.2 fl. (7.2-11.1); RBC 4.05 mil/uL (4.20-5.00); RDW-CV 14.3 % (10.5-14.5); WBC 7.8 thou/uL (4.0-11.0)
[2021-07-08 04:11] LABS: CALCIUM 8.6 mg/dL (8.5-10.1); CREATININE 1.6 mg/dL (0.6-1.3); POTASSIUM 5.2 mmol/L (3.5-5.1)
[2021-07-08 04:15] LABS: ALBUMIN 3.2 g/dL (3.4-5.0); TOTAL BILIRUBIN 0.5 mg/dL (<0.1-1.0); TOTAL PROTEIN 6.2 g/dL (6.4-8.2)
[2021-07-08 04:45] LABS: SQUAMOUS NONE SEEN /LPF (0-3)
[2021-07-08 04:46] LABS: AMORPHOUS URATES Many /LPF (None Seen); BACTERIA-REFLEX None Seen /HPF (None Seen); CASTS None Seen /LPF (None Seen); MUCUS 4-6 Moderate strn/LPF (None Seen); URINE RBC 0-2 Rare /HPF (0-2); URINE WBC-REFLEX None Seen /HPF (0-5)
[2021-07-08 08:16] VITALS: BP 134/95
--- NOTE | 2021-07-08 09:49 | NUR ---
PT WAS PLACED ON BED PAIN BUT DID NOT URINATE BUT FEEL LIKE SHE HAS TO PEE. CONFUSED. NO RESULTS ON BEDPAN. UNSURE WHAT TO DO. PURWICK PLACED ON PT.
[2021-07-08 12:00] VITALS: BP 122/80
--- NOTE | 2021-07-08 15:03 | NUR ---
Admission Assessment Admitted from home by EMS Spoke to David Mental Status upon admission Confused/Dementia Living Arrangements: House [id number] stairs to enter DC [facility] 07/05 - took son and spouse to get her up the stairs Thursday feeing worse and unable to walk at all . Lives with: or they live with patient spouse Support system: Name Phone number Relationship David Spouse [phone] spouse Tyree Hurst [phone] son and DPOA Can patient return to prior living arrangements? Yes Discussed SNU possible need and didn't want her in long term-further discussed difference LTC vs SNU and Rehab, Why SNU might be best choice Activities of daily living: At this time requires assistance with Bathing/Dressing Son or grandkids help with groceries, medications pickle processor and Dr appts Assistive device: Cane Walker Shower Chair and Beside commode Prior resource use: None Discussed private duty as option with HH if family opposed to SNU,David stated no money for that. Also called Son Tyree x3 with line busy each time and no option for VM to be left. CM will continue to follow pt and discharge planning needs
[2021-07-08 15:29] VITALS: BP 126/93
--- NOTE | 2021-07-08 17:07 | EKG ---
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: [place] : 1935 Requested By: Aaliyah Griffith Order Number: [id number] MD: Arsh Montaño Measurements Intervals [place] Rate: 76 P: 46 NH: 225 QRS: -61 QRSD: 193 T: 127 QT: 472 QTc: 531 Interpretive Statements Ventricular-paced rhythm No further analysis attempted due to paced rhythm Compared to ECG 07/03/2021 12:01:22 Ventricular premature complex(es) no longer present Electronically Signed On 07-08-2021 17:07:23 CDT by Arsh Montaño [email or web address] <ELECTRONICALLY SIGNED> By: Arsh Montaño MD, [facility] 07/08/21 1707 9 015 Arsh Montaño MD, [facility] /EPI
[2021-07-08 23:15] VITALS: BP 117/89
[2021-07-09] VITALS (7 sets, daily range): BP systolic 106–124; BP diastolic 41–83
[2021-07-09 03:28] LABS: ABSOLUTE EOSINOPHILS 0.1 thou/uL (0.0-0.7); ABSOLUTE MONOCYTES 0.2 thou/uL (0.0-1.2); ABSOLUTE NEUTROPHILS 5.4 thou/uL (1.6-8.1); BASOPHILS 0.2 %; EOSINOPHILS 0.8 %; HEMATOCRIT 38.6 % (37.0-47.0); HEMOGLOBIN 12.9 gm/dL (12.0-15.0); LYMPHOCYTES 15.4 %; MCH 32.2 pg (26.0-34.0); MCHC 33.4 g/dL (28.0-37.0); MCV 96.5 fL (80.0-100.0); MONOCYTES 3.6 %; MPV 9.3 fl. (7.2-11.1); NUCLEATED RBCS 0 /100WBC; PLATELET COUNT* 149 thou/uL (150-400); RDW-CV 14.6 % (10.5-14.5); WBC 6.8 thou/uL (4.0-11.0)
[2021-07-09 03:36] LABS: CREATININE 1.3 mg/dL (0.6-1.3); POTASSIUM 4.3 mmol/L (3.5-5.1)
--- NOTE | 2021-07-09 07:03 | NUR ---
PT ADMISSION HX AND ASSESSMENT COMPLETED; PT CURRENTLY TRACING V-PACED ON THE MONITOR; PT WITH MINIMAL PROGRESSION TOWARDS GOALS; PT CONFUSED UNABLE FOLLOW INSTRUCTIONS ATTEMPTING TO CLIMB FROM BED; PT REMAINS CLOSE TO THE NURSES STATION; PT WITH EVIDENCE OF PAIN RECEIVED PRN TRAMADOL; VITAL REMAIN STABLE, CALL LIGHT WITHIN REACH; SON-DPJANI CONTACTED AND IS COMING TO SIT WITH HIS MOTHER; REPORT GIVEN TO GOKUL
--- NOTE | 2021-07-09 08:30 | NUR ---
ASSUMED CARE OF PT. PLEASE SEE DOCUMENTED ASSESSMENT. PT IS ALERT TO PERSON ONLY. SON AT BEDSIDE. PT IS VERY [place]. REORIENTATION PROVIDED TO PT. PT DENIES PAIN AT TIME OF ASSESSMENT. PT IS NON MOBILE AT HOME. PT HAS PACEMAKER AND HX OF CHF. PLAN FOR TODAY IS TO ADVANCE PLAN OF CARE, PROMOTE COMFORT, AND TO PROMOTE NUTRITION. PT REFUSED TO EAT BREAKFAST THIS AM, AFTER MUCH COAXING BY NURSING AND PT'S SON.
--- NOTE | 2021-07-09 12:09 | NUR ---
Case and plan of care reviewed with MD each weekday during patient's length of stay. Continue plan of care per MD orders for current dx. Dr SURESH spoke to son and he is in agreement with SNU. GREG Spoke to spouse,David and he now agrees with SNU. David stated which ever SNU son agrees with is ok with him. GREG spoke to Son, Tyree, and he has chosen [facility] and [facility]. Has had family at [facility] and is going to tour [place] in next hour with his . GREG Spoke to both facilities and they both has SNU beds available. Initial clinicals and MAR faxed for review. [facility]/Meagan ph [phone] [facility] CA[place]/Melania ph [phone] fx [phone]
[2021-07-09 13:47] LABS: URINE POTASSIUM-RANDOM 59.6 mmol/L
--- NOTE | 2021-07-09 14:20 | NUR ---
PT CONTINUES TO BE RESTLESS, AFTER MUCH ENCOURAGEMENT AND REORIENTATION. PT GIVEN COMPLETE BED BATH AND REPOSITIONED FOR COMFORT.
--- NOTE | 2021-07-09 15:45 | NUR ---
UPDATED PT'S SON, TOMI, RE: PT STATUS. REPORT GIVEN TO DEVYN GARCIA.
--- NOTE | 2021-07-09 17:31 | NUR ---
PATIENT ARRIVED TO UNIT ADMISSION FROM PACU AT APPROX. 1600. PATIENT IS ONLY ORIENTED TO SELF AND HAS BEEN SLEEPING SINCE ARRIVING TO UNIT. SON CURRENTLY AT BEDSIDE. BED ALARM ON FOR PATIENT SAFETY. CALL LIGHT AND FREQUENTLY USED ITEMS WITHIN REACH.
[2021-07-10 04:10] VITALS: BP 120/77
--- NOTE | 2021-07-10 06:58 | NUR ---
Awake in confused. She is oriented to self. Son has been at bedside. She was up with max assist x 2 to the bedside commode. She doesn't take pills well. She had a large BM. Vitals are stable, she is V-paced on the monitor. She slept intermittenly.
[2021-07-10 08:10] VITALS: BP 115/84
[2021-07-10 08:39] LABS: ABSOLUTE EOSINOPHILS 0.1 thou/uL (0.0-0.7); ABSOLUTE LYMPHOCYTES 0.9 thou/uL (0.8-5.3); ABSOLUTE MONOCYTES 0.3 thou/uL (0.0-1.2); ABSOLUTE NEUTROPHILS 6.2 thou/uL (1.6-8.1); BASOPHILS 0.1 %; EOSINOPHILS 1.1 %; HEMATOCRIT 41.6 % (37.0-47.0); HEMOGLOBIN 14.2 gm/dL (12.0-15.0); LYMPHOCYTES 11.9 %; MCH 32.6 pg (26.0-34.0); MCHC 34.1 g/dL (28.0-37.0); MCV 95.6 fL (80.0-100.0); MONOCYTES 3.6 %; MPV 9.2 fl. (7.2-11.1); NUCLEATED RBCS 0 /100WBC; PLATELET COUNT* 196 thou/uL (150-400); POLYS 83.3 %; RBC 4.35 mil/uL (4.20-5.00); RDW-CV 14.6 % (10.5-14.5); WBC 7.5 thou/uL (4.0-11.0)
[2021-07-10 08:53] LABS: ALBUMIN 3.2 g/dL (3.4-5.0); CALCIUM 8.3 mg/dL (8.5-10.1); CREATININE 1.4 mg/dL (0.6-1.3); POTASSIUM 4.4 mmol/L (3.5-5.1); TOTAL BILIRUBIN 0.5 mg/dL (<0.1-1.0); TOTAL PROTEIN 6.3 g/dL (6.4-8.2)
[2021-07-10 11:19] VITALS: BP 110/80
--- NOTE | 2021-07-10 13:14 | NUR ---
CM spoke with Pt's son, he plans to tour skilled facilities today. CM to fax therapy evals to [facility] and [facility] today. Liaison from [place] came today, son does not want Pt going their. Anticipate dc tomorrow. [facility] paperwork completed and given back to son. Son hopeful that Pt will be able to get up and ambulate and return home.
--- NOTE | 2021-07-10 13:50 | NUR ---
Call back recvd from [facility] is accepted but they have no skilled beds. Notified CM BV
--- NOTE | 2021-07-10 14:53 | NUR ---
I AM IN AGREEMENT WITH DIANA KRUSE'S DOCUMENTATION. HILL BENZ, DWAINT
[2021-07-10 16:32] VITALS: BP 109/74
--- NOTE | 2021-07-10 18:25 | NUR ---
PATIENT HAS REMAINED A&OX1, PLEASANT AND COOPERATIVE WITH CARES. SON HAS BEEN AT BEDSIDE ALL SHIFT. FLUID RESTRICTION MAINTAINED. MEDICATIONS ADMINISTERED ORDERED. BED ALARM ON FOR PATIENT SAFETY. CALL LIGHT AND FREQUENTLY USED ITEMS WITHIN REACH.
[2021-07-10 20:00] VITALS: BP 91/65
[2021-07-10 23:45] VITALS: BP 100/65
[2021-07-11 04:11] LABS: ABSOLUTE EOSINOPHILS 0.1 thou/uL (0.0-0.7); ABSOLUTE LYMPHOCYTES 0.8 thou/uL (0.8-5.3); ABSOLUTE MONOCYTES 0.3 thou/uL (0.0-1.2); BASOPHILS 0.1 %; EOSINOPHILS 1.9 %; HEMATOCRIT 36.5 % (37.0-47.0); HEMOGLOBIN 12.3 gm/dL (12.0-15.0); LYMPHOCYTES 10.5 %; MCH 32.6 pg (26.0-34.0); MCHC 33.6 g/dL (28.0-37.0); MONOCYTES 4.4 %; MPV 8.8 fl. (7.2-11.1); NUCLEATED RBCS 0 /100WBC; PLATELET COUNT* 139 thou/uL (150-400); POLYS 83.1 %; RBC 3.77 mil/uL (4.20-5.00); RDW-CV 14.7 % (10.5-14.5); WBC 7.3 thou/uL (4.0-11.0)
[2021-07-11 04:16] VITALS: BP 91/44
[2021-07-11 04:34] LABS: CALCIUM 7.7 mg/dL (8.5-10.1); CREATININE 1.3 mg/dL (0.6-1.3)
--- NOTE | 2021-07-11 04:54 | NUR ---
Oriented to self,she not answering questions appropriately. She has been turned every 2hrs. She had ultram at bedtime. She did take her nightime meds without any difficulty.She has slept well
[2021-07-11] MEDS ORDERED: LISINOPRIL2.5 MG PO (07:33)
[2021-07-11] MEDS ORDERED: LASIX 20 MG TAB20 MG PO (07:33)
[2021-07-11 08:00] VITALS: BP 106/76
--- NOTE | 2021-07-11 08:21 | NUR ---
received VM from Janiya/Berny that pt has been accepted. Notified CM BV
[2021-07-11 12:00] VITALS: BP 119/84
--- NOTE | 2021-07-11 14:57 | NUR ---
GREG spoke with Nikkie at [facility], they can accept Pt tomorrow. GREG updated nurse and
[2021-07-11 16:00] VITALS: BP 120/85
[2021-07-11 20:40] VITALS: BP 111/87
--- NOTE | 2021-07-11 20:42 | NUR ---
PT PROGRESSING TOWARDS DC GOALS PT UP TO BSC SEVERAL TIMES TODAY GETTING STRONGER EACH TIME SHE WAS UP. PT DRINKING ICE WATER VERY GOOD. VSS AFEBRILE. WILL CONTINUE TO MONITOR PLAN OF CARE.
[2021-07-12 00:10] VITALS: BP 96/64
[2021-07-12 04:10] VITALS: BP 119/77
--- NOTE | 2021-07-12 05:55 | NUR ---
Alert and oriented x 2-3, she is confused. She is turned this shift. Son remains at bedside. She did try to hit the REALTY SPECIALIST. Vitals are stable Monitor is Vpaced. She has slept well.
[2021-07-12 08:00] VITALS: BP 135/95
--- NOTE | 2021-07-12 09:39 | NUR ---
Pt discharging to [facility] today. Facility to slate picker and transport at 2pm. Faxed dc orders and covid test. Updated son in room. Chart copied. Nurse report number is [phone]
--- NOTE | 2021-07-12 10:08 | NUR ---
WOUND NURSE: PATIENT'S NURSEMAX REPORTS PATIENT DOES NOT HAVE A WOUND AND DOES NOT NEED WOUND CONSULT.
[2021-07-12 12:05] VITALS: BP 124/90
== END 2021-07-12 14:36 | DRG 291 ==
LOC: M.ERS 01:49 → M.TBA-ER 04:30 → M.2W 07-09 16:00
PROVIDERS: Internal Medicine; Personal Emergency Response Attendant; ADMIT Internal Medicine; ATTEND Internal Medicine
DX: I13.0 Hypertensive heart and chronic kidney disease with heart failure and stage 1 through stage 4 chronic kidney disease, or unspecified chronic kidney disease (principal); I50.23 Acute on chronic systolic (congestive) heart failure; N17.0 Acute kidney failure with tubular necrosis; E87.1 Hypo-osmolality and hyponatremia; I42.9 Cardiomyopathy, unspecified; I25.10 Atherosclerotic heart disease of native coronary artery without angina pectoris; F03.90 Unspecified dementia, unspecified severity, without behavioral disturbance, psychotic disturbance, mood disturbance, and anxiety; J44.9 Chronic obstructive pulmonary disease, unspecified; G89.29 Other chronic pain; R27.0 Ataxia, unspecified; E87.5 Hyperkalemia; N18.9 Chronic kidney disease, unspecified; R53.81 Other malaise; I44.1 Atrioventricular block, second degree; Z20.822 Contact with and (suspected) exposure to COVID-19; Z95.5 Presence of coronary angioplasty implant and graft; Z90.49 Acquired absence of other specified parts of digestive tract; Z88.6 Allergy status to analgesic agent; Z88.1 Allergy status to other antibiotic agents; Z88.8 Allergy status to other drugs, medicaments and biological substances; Z87.891 Personal history of nicotine dependence; Z79.899 Other long term (current) drug therapy

== ENCOUNTER → 2021-08-09 | Emergency (ER) | payer MEDICARE, BC ==
[~2021-08-09] VITALS: Ht 167.6 cm; Wt 68.1 kg
[~2021-08-09] MED LIST changes: +LASIX 20 MG TAB20 MG PO; +LISINOPRIL2.5 MG PO
[2021-08-09 13:37] LABS: CALCIUM 8.4 mg/dL (8.5-10.1); CREATININE 1.3 mg/dL (0.6-1.3)
[2021-08-09 13:40] LABS: POTASSIUM 2.6 mmol/L (3.5-5.1)
[2021-08-09 15:54] VITALS: BP 98/66
== END ==
LOC: M.ERS 12:44
PROVIDERS: Emergency Medicine
DX: E86.0 Dehydration (principal); Z20.822 Contact with and (suspected) exposure to COVID-19; E87.6 Hypokalemia; I25.10 Atherosclerotic heart disease of native coronary artery without angina pectoris; I10 Essential (primary) hypertension; Z90.89 Acquired absence of other organs; Z90.49 Acquired absence of other specified parts of digestive tract; J44.9 Chronic obstructive pulmonary disease, unspecified; Z79.899 Other long term (current) drug therapy; Z88.5 Allergy status to narcotic agent; Z88.3 Allergy status to other anti-infective agents